=== PATIENT | female | born 1980 | race Caucasian/White ===

== ENCOUNTER → 2016-04-12 | Outpatient (CLI) | payer MEDICAID ==
[~2016-04-12] MED LIST: MACR100C3 PO; PRENTAB9 PO
[2016-04-12 17:48] LABS: MEAN CORPUSCULAR HEMOGLOBIN 28.2 pg (27.0-33.0); MEAN CORPUSCULAR HGB CONC 33.5 g/dl (32.0-36.5); RED CELL DISTRIBUTION WIDTH 13.2 % (11.5-14.5); WHITE BLOOD COUNT 10.6 K/mm3 (4.0-10.0)
[2016-04-15 12:51] LABS: CONTROL LINE INT CTR LINE PRESENT; HIV SCRN NEGATIVE (NEGATIVE); HIV SCRN1 NEGATIVE (NEGATIVE)
== END | disposition home or self-care (01) ==
LOC: M SMT 14:37
PROVIDERS: ATTEND Advanced Practice Midwife
DX: Z34.83 Encounter for supervision of other normal pregnancy, third trimester (principal); Z36 Encounter for antenatal screening of mother; Z3A.00 Weeks of gestation of pregnancy not specified

== ENCOUNTER 2016-04-13 21:24 | Outpatient (CLI) | payer MEDICAID | END 2016-04-13 22:25 | disposition home or self-care (01) | LOC: M LDO 21:24 | PROVIDERS: ATTEND Obstetrics & Gynecology | DX: O26.893 Other specified pregnancy related conditions, third trimester (principal); O32.1XX1 Maternal care for breech presentation, fetus 1; Z3A.39 39 weeks gestation of pregnancy ==

== ENCOUNTER 2016-04-17 12:16 | Outpatient (CLI) | payer MEDICAID ==
[~2016-04-17] VITALS: Ht 180.3 cm; Wt 102.0 kg
[2016-04-17 12:32] VITALS: BP 110/70
[2016-04-17] MEDS ORDERED: MOTR200T44 PO (12:53)
== END 2016-04-17 15:10 | disposition home or self-care (01) ==
LOC: M LDO 12:16
PROVIDERS: ATTEND Specialist
DX: O32.1XX1 Maternal care for breech presentation, fetus 1 (principal); Z3A.39 39 weeks gestation of pregnancy

== ENCOUNTER 2016-04-18 22:39 | Inpatient (IN) | payer MEDICAID ==
[~2016-04-18] VITALS: Ht 180.3 cm; Wt 85.0 kg
[~2016-04-18 22:39] MED LIST changes: +MOTR200T44 PO
[2016-04-18] MEDS ORDERED: LACTATED RINGER'S 1000 ML IV STA (23:37)
[2016-04-18] MEDS ORDERED: LR 1,000 ML IV SCH (23:37)
[2016-04-18] MEDS ORDERED: OXYTOCIN DRIP 30 UNITS in APPROPRIATE DILUENT 1 EA IV SCH (23:45)
[2016-04-18 23:48] LABS: MEAN CORPUSCULAR HEMOGLOBIN 27.4 pg (27.0-33.0); MEAN CORPUSCULAR HGB CONC 33.8 g/dl (32.0-36.5); MEAN CORPUSCULAR VOLUME 80.9 fl (80.0-96.0); RED CELL DISTRIBUTION WIDTH 13.8 % (11.5-14.5)
[2016-04-19] VITALS (9 sets, daily range): BP systolic 102–163; BP diastolic 54–80
[2016-04-19] MEDS ORDERED: FENTANYL 2MCG/ML ROPIVACAINE 0.2% NACL 250 ML CADD As Ordered ONE (01:49)
[2016-04-19] MEDS ORDERED: ONDANSETRON 4MG/2ML VIAL (J2405) IV PRN (02:45)
[2016-04-19] MEDS ORDERED: ePHEDrine SULFATE 25 MG/5 ML(5MG/ML) SYRINGE IV PRN (02:45)
[2016-04-19] MEDS ORDERED: REFRIGERATOR IV KEYS XX PRN (02:45)
[2016-04-19] MEDS ORDERED: diphenhydrAMINE INJ 50MG/ML VIAL (J1200) IV PRN (02:45)
[2016-04-19] MEDS ORDERED: EPIDURAL COMMENT XX SCH (02:45)
[2016-04-19] MEDS ORDERED: EPIDURAL/PCA KEYS XX PRN (02:45)
[2016-04-19] MEDS ORDERED: LACTATED RINGER'S 1000 ML IV PRN (02:45)
[2016-04-19] MEDS ORDERED: NALOXONE INJ 0.4 MG/1 ML VIAL (J2310) IV PRN (02:45)
[2016-04-19] MEDS ORDERED: FENTANYL/ROPIVACAINE/NACL CADD 250 ML EPIDURAL SCH (02:45)
[2016-04-19] MEDS ORDERED: OXYTOCIN DRIP 30 UNITS in APPROPRIATE DILUENT 1 EA IV SCH (08:17)
[2016-04-19] MEDS ORDERED: MEASLES,MUMPS,RUBELLA VACCINE INJ (MMR-II) (90707) SC SCH (08:30)
[2016-04-19] MEDS ORDERED: RHOGAM 300 MCG (1500 IU) INJ (J2790) IM SCH (08:30)
[2016-04-19] MEDS ORDERED: DIBUCAINE 1% OINTMENT 30GM TOP PRN (08:30)
[2016-04-19] MEDS ORDERED: DOCUSATE SODIUM 100 MG CAP PO PRN (08:30)
[2016-04-19] MEDS ORDERED: METHYLERGONOVINE MALEATE 0.2 MG TAB PO PRN (08:30)
[2016-04-19] MEDS: PRENATAL VITAMIN TAB PO SCH (09:00)
[2016-04-19] MEDS: IBUPROFEN 800 MG TAB PO PRN (18:05)
[2016-04-19] MEDS: ACETAMINOPHEN 500 MG TAB PO PRN (19:47)
[2016-04-20 05:56] VITALS: BP 97/68
[2016-04-20] MEDS: IBUPROFEN 800 MG TAB PO PRN (07:58)
[2016-04-20] MEDS: PRENATAL VITAMIN TAB PO SCH (07:58)
[2016-04-20 17:58] VITALS: BP 134/72
[2016-04-21] MEDS: ACETAMINOPHEN 500 MG TAB PO PRN (04:12)
[2016-04-21 05:26] VITALS: BP 132/62
[2016-04-21] MEDS: PRENATAL VITAMIN TAB PO SCH (07:33)
[2016-04-21] MEDS ORDERED: ACET50TA PO (08:33)
[2016-04-21] MEDS: IBUPROFEN 800 MG TAB PO PRN (10:25)
[2016-04-21] MEDS ORDERED: COLA100C PO (14:21)
[2016-04-21] MEDS ORDERED: IBUP200C PO (14:21)
== END 2016-04-21 15:15 | disposition home or self-care (01) | DRG 560 ==
LOC: M LDO 22:39 → M LDI 23:19 → M OBS 04-19 12:02
PROVIDERS: ADMIT Obstetrics & Gynecology; ATTEND Obstetrics & Gynecology
PROC: 10E0XZZ Delivery of Products of Conception, External Approach (ICD-10-PCS; principal; 2016-04-19)
PROC: 0HQ9XZZ Repair Perineum Skin, External Approach (ICD-10-PCS; 2016-04-19)
DX: O34.211 Maternal care for low transverse scar from previous cesarean delivery (principal); Z3A.39 39 weeks gestation of pregnancy; O99.824 Streptococcus B carrier state complicating childbirth; O70.0 First degree perineal laceration during delivery; Z37.0 Single live birth; D26.7 Other benign neoplasm of other parts of uterus; O26.893 Other specified pregnancy related conditions, third trimester

== ENCOUNTER 2016-05-10 02:11 | Emergency (ER) | payer MEDICAID ==
[~2016-05-10 02:11] MED LIST changes: +ACET50TA PO; +COLA100C PO; +IBUP200C PO
--- NOTE | 2016-05-10 04:08 | EDDOCDS ---
Nurse's Notes [facility] Name: Kenny Campos Age: 36 yrs Sex: Female : 1980 Arrival Date: 05/10/2016 Time: 02:11 Bed TR1 Private MD: Diagnosis: Abdominal tenderness Presentation: 05/10 02:28 Presenting complaint: Patient states: Back and abdominal pain that began suddenly lf1 tonight with nausea. Pt reports pain has lessened after vomiting. Pain is currently 2/10 and at worse goes to 9/10. Presenting complaint: Patient states: 3 weeks post . Risk factors: the patient reports moderate vaginal bleeding. Adult Sepsis Screening: The patient does not have new or worsening altered mentation. Patient's respiratory rate is less than 22. Systolic blood pressure is greater than 100. Patient has a qSOFA score of 0- Negative Sepsis Screen. Suicide/Homicide risk assessment- the patient denies having any suicidal and/or homicidal ideations and does not present with any other emotional, behavioral or mental health complaints. 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 Transition of care: patient was not received from another setting of care. 02:28 Acuity: MARINE Level 3 lf1 02:28 Method Of Arrival: Walkin/Carried/Asstd lf1 Triage Assessment: 02:31 General: Appears comfortable, Behavior is cooperative. Pain: Location: left mid back lf1 and right mid back Pain currently is 2 out of 10 on a pain scale. Pt Declines HIV testing. Neurological: Level of Consciousness is awake, alert, Oriented to person, place, time. EENT: No deficits noted. Cardiovascular: Chest pain is denied. Respiratory: Respiratory effort is even, unlabored, Respiratory pattern is regular, Denies cough. GI: Reports lower abdominal pain, nausea, vomiting. : Reports vaginal bleeding that is moderate flow. Derm: Skin is normal. Injury Description: No known injury. 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 none - PMHx: none; - PSHx: ; - Social history: Smoking status: Patient states was never smoker of tobacco. No barriers to communication noted, The patient speaks fluent Cameroonian, Speaks appropriately for age, Preferred Language: Cameroonian. - : The pt / caregiver states he / she is not on anticoagulants. Home medication list is obtained from the patient. - Exposure Risk Screening:: None identified. Screenin:34 Screening information is obtained from the patient. Fall risk: No risks identified. 1 Assistance ADL's: requires no assistance with activities of daily living. Abuse/DV Screen: The patient / caregiver reports he/she is: not in a situation that causes fear, pain or injury. Nutritional screening: No deficits noted. Advance Directives: Currently, there is no health care proxy. home support is adequate. Assessment: 04:06 General: . [facility] Vital Signs: 02:30 BP 131 / 75; Pulse 99; Resp 18; Temp 98.5(O); Pulse Ox 97% on R/A; Weight 90.72 kg (R); ld5 Height 5 ft. 11 in. (180.34 cm) (R); Pain 2/10; 02:30 Body Mass Index 27.89 (90.72 kg, 180.34 cm) ld5 Vitals: 02:31 Log In Time: May 10, 2016 at 02:11. [facility] ED Course: 02:13 Patient visited by King Cueva Reg. pm4 02:13 Patient moved to Waiting pm4 02:26 Patient moved to Triage 1 lf1 02:27 Patient visited by Gisella Kelley RN. lf1 02:31 Triage Initiated lf1 02:43 Patient moved to I8 / 16 1 02:44 Karol Alejandra,GIOVANY is Primary Nurse. cf2 02:44 Patient visited by Karol Alejandra RN. cf2 03:00 Patient visited by Karol Alejandra RN. cf2 03:04 Kwesi Hunter DO is Attending Physician. cs11 03:04 Patient visited by Kwesi Hunter DO. cs11 03:22 Patient moved to [place] [id number] 03:54 [facility] Payment Agreement was scanned into [employer] and attached to record. pm4 Order Results: There are currently no results for this order. Outcome: 04:06 Discharge Assessment: patient administered narcotics - no. The following High Risk [facility] Discharge criteria are identified: Yes, pt left AMA. The patient is leaving AMA: AMA form signed, Notification of AMA status is made to the charge nurse, the licensed clinical social worker, the ED attending physician. Condition: unknown. No special radiology studies were completed. Property :Personal belongings accompany Pt. 04:06 Patient left the ED. [facility] Signatures: Gisella Kelley,RN RN lf1 Aspen RubyRN RN ld5 Valorie Altman RN RN sls1 Kwesi Hunter, DO cs11 Karol AlejandraRN RN cf2 King Cueva, Reg Reg pm4 MTDD
--- NOTE | 2016-05-10 04:08 | EDDOCDS ---
Physician Documentation [facility] Name: Kenny Campos Age: 36 yrs Sex: Female : 1980 Arrival Date: 05/10/2016 Time: 02:11 Bed TR1 Private MD: Disposition: 05/10/16 03:04 Patient left the facility Before Provider Exam, No Interventions. Preliminary diagnosis is Abdominal tenderness. - Patient left due to Unknown reason. Historical: - Allergies: No known drug Allergies; - Home Meds: 1. none - PMHx: none; - PSHx: ; - Social history: Smoking status: Patient states was never smoker of tobacco. No barriers to communication noted, The patient speaks fluent Tamazight, Speaks appropriately for age, Preferred Language: Tamazight. - : The pt / caregiver states he / she is not on anticoagulants. Home medication list is obtained from the patient. - Exposure Risk Screening:: None identified. 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 11 in. (180.34 cm) (R); Pain 2/10; 02:30 Body Mass Index 27.89 (90.72 kg, 180.34 cm) ld5 MDM: 02:37 UA Ordered. EDMS 03:17 Financial registration complete. hs2 03:54 [facility] Payment Agreement was scanned into [employer] and attached to record. pm4 Signatures: Dispatcher MedHost EDMS Gisella KelleyRN RN lf1 Valorie Altman RN RN sls1 Kwesi Hunter DO DO cs11 Connie Wells, Reg Reg hs2 King Cueva, Reg Reg pm4 The chart was reviewed and I authenticate all verbal orders and agree with the evaluation and treatment provided.Attachments: 03:54 [facility] [place] Agreement pm4 MTDD
--- NOTE | 2016-05-12 05:07 | EDDOCDS ---
Physician Documentation [facility] Name: Kenny Campos Age: 36 yrs Sex: Female : 1980 Arrival Date: 05/10/2016 Time: 02:11 Bed TR1 Private MD: Disposition: 05/10/16 03:04 Patient left the facility Before Provider Exam, No Interventions. Preliminary diagnosis is Abdominal tenderness. - Patient left due to Unknown reason. Historical: - Allergies: No known drug Allergies; - Home Meds: 1. none - PMHx: none; - PSHx: ; - Social history: Smoking status: Patient states was never smoker of tobacco. No barriers to communication noted, The patient speaks fluent Serbian, Speaks appropriately for age, Preferred Language: Serbian. - : The pt / caregiver states he / she is not on anticoagulants. Home medication list is obtained from the patient. - Exposure Risk Screening:: None identified. 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 11 in. (180.34 cm) (R); Pain 2/10; 02:30 Body Mass Index 27.89 (90.72 kg, 180.34 cm) ld5 MDM: 02:37 UA Ordered. EDMS 03:17 Financial registration complete. hs2 03:54 [facility] Payment Agreement was scanned into [employer] and attached to record. pm4 14:20 Refusal of Services was scanned into [employer] and attached to record. gb Signatures: Dispatcher MedHost EDMD Dina Tello, Reg Reg gb Gisella Kelley RN RN lf1 Valorie Altman RN RN sls1 Kwesi Hunter DO DO cs11 Connie Wells, Reg Reg hs2 King Cueva, Reg Reg pm4 The chart was reviewed and I authenticate all verbal orders and agree with the evaluation and treatment provided.Attachments: 03:54 [facility] Payment Agreement pm4 Chart Complete MTDD
--- NOTE | 2016-05-12 05:07 | EDDOCDS ---
Physician Documentation [facility] Name: Kenny Campos Age: 36 yrs Sex: Female : 1980 Arrival Date: 05/10/2016 Time: 02:11 Bed TR1 Private MD: Disposition: 05/10/16 03:04 Patient left the facility Before Provider Exam, No Interventions. Preliminary diagnosis is Abdominal tenderness. - Patient left due to Unknown reason. Historical: - Allergies: No known drug Allergies; - Home Meds: 1. none - PMHx: none; - PSHx: ; - Social history: Smoking status: Patient states was never smoker of tobacco. No barriers to communication noted, The patient speaks fluent Persian, Speaks appropriately for age, Preferred Language: Persian. - : The pt / caregiver states he / she is not on anticoagulants. Home medication list is obtained from the patient. - Exposure Risk Screening:: None identified. 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 11 in. (180.34 cm) (R); Pain 2/10; 02:30 Body Mass Index 27.89 (90.72 kg, 180.34 cm) ld5 MDM: 02:37 UA Ordered. EDMS 03:17 Financial registration complete. hs2 03:54 [facility] Payment Agreement was scanned into [employer] and attached to record. pm4 14:20 Refusal of Services was scanned into [employer] and attached to record. gb Signatures: Dispatcher [employer]Host EDMN Dina Tello, Reg Reg gb Gisella Kelley RN RN lf1 Valorie Altman RN RN sls1 Kwesi Hunter DO DO cs11 Connie Wells, Reg Reg hs2 King Cueva, Reg Reg pm4 The chart was reviewed and I authenticate all verbal orders and agree with the evaluation and treatment provided.Attachments: 03:54 [facility] Payment Agreement pm4 Chart Complete MTDD
--- NOTE | 2016-05-12 05:07 | EDDOCDS ---
Nurse's Notes [facility] Name: Kenny Campos Age: 36 yrs Sex: Female : 1980 Arrival Date: 05/10/2016 Time: 02:11 Bed TR1 Private MD: Diagnosis: Abdominal tenderness Presentation: 05/10 02:28 Presenting complaint: Patient states: Back and abdominal pain that began suddenly lf1 tonight with nausea. Pt reports pain has lessened after vomiting. Pain is currently 2/10 and at worse goes to 9/10. Presenting complaint: Patient states: 3 weeks post . Risk factors: the patient reports moderate vaginal bleeding. Adult Sepsis Screening: The patient does not have new or worsening altered mentation. Patient's respiratory rate is less than 22. Systolic blood pressure is greater than 100. Patient has a qSOFA score of 0- Negative Sepsis Screen. Suicide/Homicide risk assessment- the patient denies having any suicidal and/or homicidal ideations and does not present with any other emotional, behavioral or mental health complaints. 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 Transition of care: patient was not received from another setting of care. 02:28 Acuity: MARINE Level 3 lf1 02:28 Method Of Arrival: Walkin/Carried/Asstd lf1 Triage Assessment: 02:31 General: Appears comfortable, Behavior is cooperative. Pain: Location: left mid back lf1 and right mid back Pain currently is 2 out of 10 on a pain scale. Pt Declines HIV testing. Neurological: Level of Consciousness is awake, alert, Oriented to person, place, time. EENT: No deficits noted. Cardiovascular: Chest pain is denied. Respiratory: Respiratory effort is even, unlabored, Respiratory pattern is regular, Denies cough. GI: Reports lower abdominal pain, nausea, vomiting. : Reports vaginal bleeding that is moderate flow. Derm: Skin is normal. Injury Description: No known injury. 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 none - PMHx: none; - PSHx: ; - Social history: Smoking status: Patient states was never smoker of tobacco. No barriers to communication noted, The patient speaks fluent New Zealander, Speaks appropriately for age, Preferred Language: New Zealander. - : The pt / caregiver states he / she is not on anticoagulants. Home medication list is obtained from the patient. - Exposure Risk Screening:: None identified. Screenin:34 Screening information is obtained from the patient. Fall risk: No risks identified. lf1 Assistance ADL's: requires no assistance with activities of daily living. Abuse/DV Screen: The patient / caregiver reports he/she is: not in a situation that causes fear, pain or injury. Nutritional screening: No deficits noted. Advance Directives: Currently, there is no health care proxy. home support is adequate. Assessment: 04:06 General: . sls1 Social Work Consult: 06:18 LWBS/AMA AMA: Patient is refusing further stabilizing treatment at [facility], although cl offered treatment regardless of method of payment or ability to pay. Patient is aware that this action is being undertaken against the advice of the medical staff at [facility]. Pt. has capacity to understand the potential consequences of this choice. pt did notify ED staff. Patient / guardian did sign Refusal of Services form. Pt left before being seen by PSA. Vital Signs: 02:30 BP 131 / 75; Pulse 99; Resp 18; Temp 98.5(O); Pulse Ox 97% on R/A; Weight 90.72 kg (R); ld5 Height 5 ft. 11 in. (180.34 cm) (R); Pain 2/10; 02:30 Body Mass Index 27.89 (90.72 kg, 180.34 cm) ld5 Vitals: 02:31 Log In Time: May 10, 2016 at 02:11. lf1 ED Course: 02:13 Patient visited by King Cueva Reg. pm4 02:13 Patient moved to Waiting pm4 02:26 Patient moved to Triage 1 lf1 02:27 Patient visited by Gisella Kelley RN. lf1 02:31 Triage Initiated lf1 02:43 Patient moved to I8 / 16 lf1 02:44 Karol Alejandra,GIOVANY is Primary Nurse. cf2 02:44 Patient visited by Karol Alejandra,GIOVANY. cf2 03:00 Patient visited by Karol Alejandra,GIOVANY. cf2 03:04 Kwesi Hunter DO is Attending Physician. cs11 03:04 Patient visited by Kwesi Hunter DO. cs11 03:22 Patient moved to TR1 [facility] 03:54 [facility] [place] Agreement was scanned into [employer] and attached to record. pm4 14:20 Refusal of Services was scanned into [employer] and attached to record. gb Attachments: 14:20 Refusal of Services gb Order Results: There are currently no results for this order. Outcome: 04:06 Discharge Assessment: patient administered narcotics - no. The following High Risk [facility] Discharge criteria are identified: Yes, pt left AMA. The patient is leaving AMA: AMA form signed, Notification of AMA status is made to the charge nurse, the moving worker, the ED attending physician. Condition: unknown. No special radiology studies were completed. Property :Personal belongings accompany Pt. 04:06 Patient left the ED. [facility] Signatures: Cesar Carrizales, ANDREW PSA cl Dina Tello, Reg Reg gb Gisella Kelley,RN RN lf1 Aspen RubyRN RN ld5 Valorie Altman RN RN sls1 Kwesi Hunter, DO cs11 Karol AlejandraRN RN cf2 King Cueva, Reg Reg pm4 Chart Complete GRETEL
--- NOTE | 2016-05-13 10:11 | EDDOCDS ---
Nurse's Notes [facility] Name: Kenny Campos Age: 36 yrs Sex: Female : 1980 Arrival Date: 05/10/2016 Time: 02:11 Bed TR1 Private MD: Diagnosis: Abdominal tenderness Presentation: 05/10 02:28 Presenting complaint: Patient states: Back and abdominal pain that began suddenly lf1 tonight with nausea. Pt reports pain has lessened after vomiting. Pain is currently 2/10 and at worse goes to 9/10. Presenting complaint: Patient states: 3 weeks post . Risk factors: the patient reports moderate vaginal bleeding. Adult Sepsis Screening: The patient does not have new or worsening altered mentation. Patient's respiratory rate is less than 22. Systolic blood pressure is greater than 100. Patient has a qSOFA score of 0- Negative Sepsis Screen. Suicide/Homicide risk assessment- the patient denies having any suicidal and/or homicidal ideations and does not present with any other emotional, behavioral or mental health complaints. 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 Transition of care: patient was not received from another setting of care. 02:28 Acuity: MARINE Level 3 lf1 02:28 Method Of Arrival: Walkin/Carried/Asstd lf1 Triage Assessment: 02:31 General: Appears comfortable, Behavior is cooperative. Pain: Location: left mid back lf1 and right mid back Pain currently is 2 out of 10 on a pain scale. Pt Declines HIV testing. Neurological: Level of Consciousness is awake, alert, Oriented to person, place, time. EENT: No deficits noted. Cardiovascular: Chest pain is denied. Respiratory: Respiratory effort is even, unlabored, Respiratory pattern is regular, Denies cough. GI: Reports lower abdominal pain, nausea, vomiting. : Reports vaginal bleeding that is moderate flow. Derm: Skin is normal. Injury Description: No known injury. 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 none - PMHx: none; - PSHx: ; - Social history: Smoking status: Patient states was never smoker of tobacco. No barriers to communication noted, The patient speaks fluent Gambian, Speaks appropriately for age, Preferred Language: Gambian. - : The pt / caregiver states he / she is not on anticoagulants. Home medication list is obtained from the patient. - Exposure Risk Screening:: None identified. Screenin:34 Screening information is obtained from the patient. Fall risk: No risks identified. lf1 Assistance ADL's: requires no assistance with activities of daily living. Abuse/DV Screen: The patient / caregiver reports he/she is: not in a situation that causes fear, pain or injury. Nutritional screening: No deficits noted. Advance Directives: Currently, there is no health care proxy. home support is adequate. Assessment: 04:06 General: . sls1 Social Work Consult: 06:18 LWBS/AMA AMA: Patient is refusing further stabilizing treatment at [facility], although cl offered treatment regardless of method of payment or ability to pay. Patient is aware that this action is being undertaken against the advice of the medical staff at [facility]. Pt. has capacity to understand the potential consequences of this choice. pt did notify ED staff. Patient / guardian did sign Refusal of Services form. Pt left before being seen by PSA. Vital Signs: 02:30 BP 131 / 75; Pulse 99; Resp 18; Temp 98.5(O); Pulse Ox 97% on R/A; Weight 90.72 kg (R); ld5 Height 5 ft. 11 in. (180.34 cm) (R); Pain 2/10; 02:30 Body Mass Index 27.89 (90.72 kg, 180.34 cm) ld5 Vitals: 02:31 Log In Time: May 10, 2016 at 02:11. lf1 ED Course: 02:13 Patient visited by King Cueva Reg. pm4 02:13 Patient moved to Waiting pm4 02:26 Patient moved to Triage 1 lf1 02:27 Patient visited by Gisella Kelley RN. lf1 02:31 Triage Initiated lf1 02:43 Patient moved to I8 / 16 lf1 02:44 Karol Alejandra,GIOVANY is Primary Nurse. cf2 02:44 Patient visited by Karol Alejandra,GIOVANY. cf2 03:00 Patient visited by Karol Alejandra,GIOVANY. cf2 03:04 Kwesi Hunter DO is Attending Physician. cs11 03:04 Patient visited by Kwesi Hunter DO. cs11 03:22 Patient moved to TR1 [facility] 03:54 [facility] Payment Agreement was scanned into [employer] and attached to record. pm4 14:20 Refusal of Services was scanned into [employer] and attached to record. gb Attachments: 14:20 Refusal of Services gb Order Results: There are currently no results for this order. Outcome: 04:06 Discharge Assessment: patient administered narcotics - no. The following High Risk [facility] Discharge criteria are identified: Yes, pt left AMA. The patient is leaving AMA: AMA form signed, Notification of AMA status is made to the charge nurse, the addiction social worker, the ED attending physician. Condition: unknown. No special radiology studies were completed. Property :Personal belongings accompany Pt. 04:06 Patient left the ED. [facility] Addendum: 05/13/2016 10:10 Narrative: Letter and discharge instructions mailed to pt. tc Signatures: Lindy Hartman Chris, ANDREW PSA cl Dina Tello, Reg Reg gb Gisella Kelley,RN RN lf1 Aspen Ruby,RN RN ld5 Valorie Altman, RN RN sls1 Kwesi Hunter, DO DO cs11 Karol Alejandra,RN RN cf2 King Cueva, Reg Reg pm4 MTDD
--- NOTE | 2016-05-13 10:11 | EDDOCDS ---
Physician Documentation [facility] Name: Kenny Campos Age: 36 yrs Sex: Female : 1980 Arrival Date: 05/10/2016 Time: 02:11 Bed TR1 Private MD: Disposition: 05/10/16 03:04 Patient left the facility Before Provider Exam, No Interventions. Preliminary diagnosis is Abdominal tenderness. - Patient left due to Unknown reason. Historical: - Allergies: No known drug Allergies; - Home Meds: 1. none - PMHx: none; - PSHx: ; - Social history: Smoking status: Patient states was never smoker of tobacco. No barriers to communication noted, The patient speaks fluent Wolof, Speaks appropriately for age, Preferred Language: Wolof. - : The pt / caregiver states he / she is not on anticoagulants. Home medication list is obtained from the patient. - Exposure Risk Screening:: None identified. 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 11 in. (180.34 cm) (R); Pain 2/10; 02:30 Body Mass Index 27.89 (90.72 kg, 180.34 cm) ld5 MDM: 02:37 UA Ordered. EDMS 03:17 Financial registration complete. hs2 03:54 [facility] Payment Agreement was scanned into [employer] and attached to record. pm4 14:20 Refusal of Services was scanned into [employer] and attached to record. gb Signatures: Dispatcher MedHost EDOR Dina Tello, Reg Reg gb Gisella Kelley RN RN lf1 Valorie Altman RN RN sls1 Kwesi Hunter DO DO cs11 Connie Wells, Reg Reg hs2 King Cueva, Reg Reg pm4 The chart was reviewed and I authenticate all verbal orders and agree with the evaluation and treatment provided.Attachments: 03:54 [facility] [place] Payment Agreement pm4 MTDD
--- NOTE | 2016-05-13 10:11 | EDDOCDS ---
Physician Documentation [facility] Name: Kenny Campos Age: 36 yrs Sex: Female : 1980 Arrival Date: 05/10/2016 Time: 02:11 Bed TR1 Private MD: Disposition: 05/10/16 03:04 Patient left the facility Before Provider Exam, No Interventions. Preliminary diagnosis is Abdominal tenderness. - Patient left due to Unknown reason. Historical: - Allergies: No known drug Allergies; - Home Meds: 1. none - PMHx: none; - PSHx: ; - Social history: Smoking status: Patient states was never smoker of tobacco. No barriers to communication noted, The patient speaks fluent Slovak, Speaks appropriately for age, Preferred Language: Slovak. - : The pt / caregiver states he / she is not on anticoagulants. Home medication list is obtained from the patient. - Exposure Risk Screening:: None identified. 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 11 in. (180.34 cm) (R); Pain 2/10; 02:30 Body Mass Index 27.89 (90.72 kg, 180.34 cm) ld5 MDM: 02:37 UA Ordered. EDMS 03:17 Financial registration complete. hs2 03:54 [facility] Payment Agreement was scanned into [employer] and attached to record. pm4 14:20 Refusal of Services was scanned into [employer]ii and attached to record. gb Signatures: Dispatcher Med[employer] EDRI Dina Tello, Reg Reg gb Gisella Kelley RN RN lf1 Valorie Altman RN RN sls1 Kwesi Hunter DO DO cs11 Connie Wells, Reg Reg hs2 King Cueva, Reg Reg pm4 The chart was reviewed and I authenticate all verbal orders and agree with the evaluation and treatment provided.Attachments: 03:54 [facility] Payment Agreement pm4 MTDD
--- NOTE | 2016-05-13 10:12 | EDDOCDS ---
Nurse's Notes [facility] Name: Kenny Campos Age: 36 yrs Sex: Female : 1980 Arrival Date: 05/10/2016 Time: 02:11 Bed TR1 Private MD: Diagnosis: Abdominal tenderness Presentation: 05/10 02:28 Presenting complaint: Patient states: Back and abdominal pain that began suddenly lf1 tonight with nausea. Pt reports pain has lessened after vomiting. Pain is currently 2/10 and at worse goes to 9/10. Presenting complaint: Patient states: 3 weeks post . Risk factors: the patient reports moderate vaginal bleeding. Adult Sepsis Screening: The patient does not have new or worsening altered mentation. Patient's respiratory rate is less than 22. Systolic blood pressure is greater than 100. Patient has a qSOFA score of 0- Negative Sepsis Screen. Suicide/Homicide risk assessment- the patient denies having any suicidal and/or homicidal ideations and does not present with any other emotional, behavioral or mental health complaints. Status: Patient is not a employment services director or dependent. Transition of care: patient was not received from another setting of care. 02:28 Acuity: MARINE Level 3 lf1 02:28 Method Of Arrival: Walkin/Carried/Asstd lf1 Triage Assessment: 02:31 General: Appears comfortable, Behavior is cooperative. Pain: Location: left mid back lf1 and right mid back Pain currently is 2 out of 10 on a pain scale. Pt Declines HIV testing. Neurological: Level of Consciousness is awake, alert, Oriented to person, place, time. EENT: No deficits noted. Cardiovascular: Chest pain is denied. Respiratory: Respiratory effort is even, unlabored, Respiratory pattern is regular, Denies cough. GI: Reports lower abdominal pain, nausea, vomiting. : Reports vaginal bleeding that is moderate flow. Derm: Skin is normal. Injury Description: No known injury. TECHNICAL AID: 02:31 3, Living 3, LMP 05/10/2016 lf1 Historical: - Allergies: No known drug Allergies; - Home Meds: 1. none - PMHx: none; - PSHx: ; - Social history: Smoking status: Patient states was never smoker of tobacco. No barriers to communication noted, The patient speaks fluent [place], Speaks appropriately for age, Preferred Language: [place]. - : The pt / caregiver states he / she is not on anticoagulants. Home medication list is obtained from the patient. - Exposure Risk Screening:: None identified. Screenin:34 Screening information is obtained from the patient. Fall risk: No risks identified. lf1 Assistance ADL's: requires no assistance with activities of daily living. Abuse/DV Screen: The patient / caregiver reports he/she is: not in a situation that causes fear, pain or injury. Nutritional screening: No deficits noted. Advance Directives: Currently, there is no health care proxy. home support is adequate. Assessment: 04:06 General: . sls1 Social Work Consult: 06:18 LWBS/AMA AMA: Patient is refusing further stabilizing treatment at [facility], although cl offered treatment regardless of method of payment or ability to pay. Patient is aware that this action is being undertaken against the advice of the medical staff at [facility]. Pt. has capacity to understand the potential consequences of this choice. pt did notify ED staff. Patient / guardian did sign Refusal of Services form. Pt left before being seen by PSA. Vital Signs: 02:30 BP 131 / 75; Pulse 99; Resp 18; Temp 98.5(O); Pulse Ox 97% on R/A; Weight 90.72 kg (R); ld5 Height 5 ft. 11 in. (180.34 cm) (R); Pain 2/10; 02:30 Body Mass Index 27.89 (90.72 kg, 180.34 cm) ld5 Vitals: 02:31 Log In Time: May 10, 2016 at 02:11. lf1 ED Course: 02:13 Patient visited by King Cueva Reg. pm4 02:13 Patient moved to Waiting pm4 02:26 Patient moved to Triage 1 lf1 02:27 Patient visited by Gisella Kelley RN. lf1 02:31 Triage Initiated lf1 02:43 Patient moved to I8 / 16 lf1 02:44 Karol Alejandra,GIOVANY is Primary Nurse. cf2 02:44 Patient visited by Karol Alejandra,GIOVANY. cf2 03:00 Patient visited by Karol Alejandra,GIOVANY. cf2 03:04 Kwesi Hunter DO is Attending Physician. cs11 03:04 Patient visited by Kwesi Hunter DO. cs11 03:22 [facility] [place] Agreement was scanned into [employer] and attached to record. pm4 14:20 Refusal of Services was scanned into [employer] and attached to record. gb Attachments: 14:20 Refusal of Services gb Order Results: There are currently no results for this order. Outcome: 04:06 Discharge Assessment: patient administered narcotics - no. The following High Risk [facility] Discharge criteria are identified: Yes, pt left AMA. The patient is leaving AMA: AMA form signed, Notification of AMA status is made to the charge nurse, the social welfare administrator, the ED attending physician. Condition: unknown. No special radiology studies were completed. Property :Personal belongings accompany Pt. 04:06 Patient left the ED. [facility] Addendum: 05/13/2016 10:10 Narrative: Letter and discharge instructions mailed to pt. tc Signatures: Lindy aHrtman Chris, ANDREW PSA cl Dina Tello, Reg Reg gb Gisella Kelley,RN RN lf1 Aspen Ruby,RN RN ld5 Valorie Altman, RN RN sls1 Kwesi Hunter, DO DO cs11 Karol Alejandra,RN RN cf2 King Cueva, Reg Reg pm4 Chart Complete MTDD
--- NOTE | 2016-05-13 10:12 | EDDOCDS ---
Physician Documentation [facility] Name: Kenny Campos Age: 36 yrs Sex: Female : 1980 Arrival Date: 05/10/2016 Time: 02:11 Bed TR1 Private MD: Disposition: 05/10/16 03:04 Patient left the facility Before Provider Exam, No Interventions. Preliminary diagnosis is Abdominal tenderness. - Patient left due to Unknown reason. Historical: - Allergies: No known drug Allergies; - Home Meds: 1. none - PMHx: none; - PSHx: ; - Social history: Smoking status: Patient states was never smoker of tobacco. No barriers to communication noted, The patient speaks fluent Slovak, Speaks appropriately for age, Preferred Language: Slovak. - : The pt / caregiver states he / she is not on anticoagulants. Home medication list is obtained from the patient. - Exposure Risk Screening:: None identified. 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 11 in. (180.34 cm) (R); Pain 2/10; 02:30 Body Mass Index 27.89 (90.72 kg, 180.34 cm) ld5 MDM: 02:37 UA Ordered. EDMS 03:17 Financial registration complete. hs2 03:54 [facility] Payment Agreement was scanned into [employer] and attached to record. pm4 14:20 Refusal of Services was scanned into [employer] and attached to record. gb Signatures: Dispatcher Med[employer] EDIN Dina Tello, Reg Reg gb Gisella Kelley RN RN lf1 Valorie Altman RN RN sls1 Kwesi Hunter DO DO cs11 Connie Wells, Reg Reg hs2 King Cueva, Reg Reg pm4 The chart was reviewed and I authenticate all verbal orders and agree with the evaluation and treatment provided.Attachments: 03:54 [facility] Payment Agreement pm4 Chart Complete MTDD
--- NOTE | 2016-05-13 10:12 | EDDOCDS ---
Physician Documentation [facility] Name: Kenny Campos Age: 36 yrs Sex: Female : 1980 Arrival Date: 05/10/2016 Time: 02:11 Bed TR1 Private MD: Disposition: 05/10/16 03:04 Patient left the facility Before Provider Exam, No Interventions. Preliminary diagnosis is Abdominal tenderness. - Patient left due to Unknown reason. Historical: - Allergies: No known drug Allergies; - Home Meds: 1. none - PMHx: none; - PSHx: ; - Social history: Smoking status: Patient states was never smoker of tobacco. No barriers to communication noted, The patient speaks fluent German, Speaks appropriately for age, Preferred Language: German. - : The pt / caregiver states he / she is not on anticoagulants. Home medication list is obtained from the patient. - Exposure Risk Screening:: None identified. 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 11 in. (180.34 cm) (R); Pain 2/10; 02:30 Body Mass Index 27.89 (90.72 kg, 180.34 cm) ld5 MDM: 02:37 UA Ordered. EDMS 03:17 Financial registration complete. hs2 03:54 [facility] Payment Agreement was scanned into #waywire and attached to record. pm4 14:20 Refusal of Services was scanned into #waywire and attached to record. gb Signatures: Dispatcher [employer] EDCA Dina Tello, Reg Reg gb Gisella Kelley RN RN lf1 Valorie Altman RN RN sls1 Kwesi Hunter DO DO cs11 Connie Wells, Reg Reg hs2 King Cueva, Reg Reg pm4 The chart was reviewed and I authenticate all verbal orders and agree with the evaluation and treatment provided.Attachments: 03:54 [place] Payment Agreement pm4 Chart Complete MTDD
== END 2016-05-10 03:00 | disposition left against medical advice (07) ==
LOC: M ED 02:11
DX: Z53.29 Procedure and treatment not carried out because of patient's decision for other reasons (principal)

== ENCOUNTER 2016-05-27 23:33 | Inpatient (IN) | payer MEDICAID ==
[~2016-05-27] VITALS: Ht 180.3 cm; Wt 96.9 kg
[2016-05-28] MEDS ORDERED: METOCLOPRAMIDE INJ 10MG/2ML VIAL (J2765) IV ONE (00:15)
[2016-05-28] MEDS ORDERED: NS 1,000 ML IV ONE (00:15)
[2016-05-28 00:28] LABS: BASO % 0.1 % (0.0-1.0); EOS # 0.2 K/mm3 (0.0-0.50); LARGE UNSTAINED CELL # 0.1 K/mm3 (0.0-0.4); LARGE UNSTAINED CELL % 0.4 % (0.0-4.0); LYMPH # 0.9 K/mm3 (1.5-4.5); LYMPH % 5.2 % (24.0-44.0); MEAN CORPUSCULAR HEMOGLOBIN 26.6 pg (27.0-33.0); MEAN CORPUSCULAR HGB CONC 31.8 g/dl (32.0-36.5); MEAN CORPUSCULAR VOLUME 83.8 fl (80.0-96.0); MONO # 0.8 K/mm3 (0.0-0.8); MONO % 4.8 % (0.0-5.0); NEUTROPHILS % 88.5 % (36.0-66.0); PLATELET COUNT, AUTOMATED 273 k/mm3 (150-450); RED CELL DISTRIBUTION WIDTH 13.1 % (11.5-14.5); WHITE BLOOD COUNT 15.8 K/mm3 (4.0-10.0)
[2016-05-28 00:41] LABS: CONTROL LINE HCG INT CTR LINE PRESENT
[2016-05-28 00:50] LABS: ALBUMIN 4.1 GM/DL (3.2-5.2); ALBUMIN/GLOBULIN RATIO 0.91 (1.00-1.93); ALKALINE PHOSPHATASE 340 U/L (45-117); ALT/SGPT 548 U/L (12-78); AMYLASE 719 U/L (25-115); ANION GAP 10 MEQ/L (8-16); AST/SGOT 726 U/L (15-37); BILIRUBIN,DIRECT 0.4 MG/DL (0.0-0.2); BILIRUBIN,TOTAL 0.9 MG/DL (0.2-1.0); BLOOD UREA NITROGEN 12 MG/DL (7-18); CALCIUM LEVEL 9.3 MG/DL (8.5-10.1); CARBON DIOXIDE LEVEL 26 MEQ/L (21-32); CHLORIDE LEVEL 108 MEQ/L (98-107); CREATININE FOR GFR 0.97 MG/DL (0.55-1.02); GLOMERULAR FILTRATION RATE > 60.0 (>60); GLUCOSE, FASTING 128 MG/DL (70-105); POTASSIUM SERUM 3.7 MEQ/L (3.5-5.1); SODIUM LEVEL 144 MEQ/L (136-145); TOTAL PROTEIN 8.6 GM/DL (6.4-8.2)
[2016-05-28] MEDS ORDERED: MORPHINE 4 MG/ML 1ML SYRINGE IV ONE (01:45)
[2016-05-28] MEDS ORDERED: GASTROGRAFIN SOLUTION 30ML (Q9963) As Ordered ONE (01:55)
[2016-05-28] MEDS ORDERED: ISOVUE-370 76% 100ML VIAL (Q9967) As Ordered ONE (03:29)
[2016-05-28] MEDS ORDERED: HYDROmorphone HCL 1 MG/ML SYRINGE (J1170) IV ONE (05:15)
[2016-05-28] MEDS ORDERED: ONDANSETRON 4 MG TAB (S0181) PO PRN (05:30)
[2016-05-28] MEDS ORDERED: MORPHINE 2 MG/ML 1ML SYRINGE IV PRN (05:30)
--- NOTE | 2016-05-28 06:40 | REPUSA ---
CLINICAL HISTORY: Abdominal pain. TECHNIQUE: Realtime sonographic images were obtained in multiple projections. COMMENTS: The liver is of normal size, parenchyma demonstrates normal echogenicity. No discrete hepatic mass is seen. There is no intra or extrahepatic biliary ductal dilatation. CBD measures 4 mm. The gallbladder is ph ysiologically distended with evidence of calculi and gravel. The gallbladder wall is not thickened an d there is no pericholecystic fluid. There is no abdominal ascites. The right kidney measures 12x6.2x4.7 cm, free of hydronephrosis. IMPRESSION: Cholelithiasis. No evidence for acute cholecystitis. Thank you for your kind referral of this patient.
[2016-05-28] MEDS: NS 1,000 ML IV SCH ×4 (07:30→20:42)
[2016-05-28 07:41] VITALS: BP 92/59
--- NOTE | 2016-05-28 08:07 | HPEPDOC ---
General Date of Admission May 28, 2016 at 07:07 Attending Physician: SHYAM GUPTA DO Chief Complaint The patient is a 36-year-old female admitted with a reason for visit of Pancreatitis. Source: Patient, RN notes reviewed Exam Limitations: No limitations Timing/Duration: Week(s), Getting worse Severity: Moderate Associated Symptoms: Nausea, Vomiting, Weakness History of Present Illness Ms. Campos is a 36 year old female with no past medical history who presents to [facility]'s emergency department with nausea and vomiting. Patient states that she has been having abdominal and back pain throughout her most recent and gave vaginally about a month ago. The back and abdominal pain continued after giving which she attributed to epidural pain. She describes the pain as sharp and shooting in her back and the abdominal pain is diffuse across her abdomen. Most recently, last night she began vomiting which lasted for 2 hours. She stated that anything she would try to orally consume she would bring up. She eventually just dry-heaved. She does state that she vomited up blood as well. She states that she feels weak and has numbness in her lower extremities, which is new. She is unable to lay flat due to the back pain. She admits to shortness of breath secondary to the pain. Denies radiating pain. This has never happened before. She has tried hot water on her back which provided some relief. Home Medications No Active Prescriptions or Reported Meds Allergies Coded Allergies: No Known Allergies (Unverified , 02/07/16) Past Medical History Medical History None Surgical History , 2006 Family History Significant Family History: No pertinent family hx Adopted Social History * Smoker: Denies Alcohol: Denies Drugs: denies Recent Travel/Sick Contacts: Denies: Recent sick contacts, Recent travel Currently is not employed Stays at home to take care of her No environmental exposures Remote travel history to [facility] where she lived for 7 years Admits to drinking a lot of soda Prior history of alcohol abuse, 2-3 drinks/night; quit 2 years ago Denies illicit drug use Review of Symptoms Constitutional: Reports: Weakness, Denies: Chills, Fever, Malaise, Night Sweats Eyes: Denies: Vision change ENT: Denies: Head Aches, Sore Throat Skin: Denies: Lesions, Rash Pulmonary: Reports: Dyspnea, Denies: Cough Cardiovascular: Denies: Chest Pain, Lt Headedness, Palpitations Gastrointestinal: Reports: Abdominal Pain, Nausea, Vomiting, Denies: Hematochezia, Melena Genitourinary: Denies: Hematuria Musculoskeletal: Reports: Back Pain Neurological: Reports: Numbness (Lower extremities), Weakness Physical Examination General Exam: Positive: Alert, Cooperative Eye Exam: Positive: Conjunctiva & lids normal, EOMI, PERRLA, Negative: Sclera icteric ENT Exam: Positive: Atraumatic, Nares Patent, Tongue Midline Neck Exam: Positive: Supple, Negative: JVD, Lymphadenopathy, thyromegaly Chest Exam: Positive: Clear to auscultation, Normal air movement, Negative: Rales, Rhonchi, Wheezing Heart Exam: Positive: Rate Normal, Regular Rhythm, Tachycardic Telemetry: Positive: No significant arrhythmia Abdomen Exam: Positive: Normal bowel sounds, Soft, Tenderness (To palpation) Extremity Exam: Positive: Normal pulses, Negative: Clubbing, Cyanosis, Edema, Tenderness Neuro Exam: Positive: Cranial Nerves 3-12 NL, Normal Speech Vital Signs T 99.5 HR 88 RR 18 BP 122/73 O2 97% RA Height (in): 71 Weight (kg): 90.72 BMI (kg): 27.9 Laboratory Data Labs 24H Laboratory Tests 2 05/28/16 00:11: Aspartate Amino Transf (AST/SGOT) 726H, Alanine Aminotransferase (ALT/SGPT) 548H , Alkaline Phosphatase 340H, Total Bilirubin 0.9, Direct Bilirubin 0.4H, Albumin 4.1, Albumin/Globulin Ratio 0.91L, Amylase Level 719H, Anion Gap 10, White Blood Count 15.8H, Red Blood Count 5.19, Hemoglobin 13.8, Hematocrit 43.5 , Mean Corpuscular Volume 83.8, Mean Corpuscular Hemoglobin 26.6L, Mean Corpuscular Hemoglobin Concent 31.8L, Red Cell Distribution Width 13.1, Platelet Count 273, Neutrophils (%) (Auto) 88.5H, Lymphocytes (%) (Auto) 5.2L, Monocytes (%) (Auto) 4.8, Eosinophils (%) (Auto) 1.0, Basophils (%) (Auto) 0.1, Neutrophils # (Auto) 14.0H, Lymphocytes # (Auto) 0.9L, Monocytes # (Auto) 0.8, Eosinophils # (Auto) 0.2, Basophils # (Auto) 0.0, Calcium Level 9.3, Glomerular Filtration Rate > 60.0, Human Chorionic Gonadotropin, Qual NEGATIVE, Large Unclassified Cells # 0.1, Large Unclassified Cells % 0.4, Lipase 01861L, Total Protein 8.6H CBC/BMP Laboratory Tests 05/28/16 00:11 Red Blood Count 5.19, Mean Corpuscular Volume 83.8, Mean Corpuscular Hemoglobin 26.6 L, Mean Corpuscular Hemoglobin Concent 31.8 L, Red Cell Distribution Width 13.1, Neutrophils (%) (Auto) 88.5 H, Lymphocytes (%) (Auto) 5.2 L, Monocytes (% ) (Auto) 4.8, Eosinophils (%) (Auto) 1.0, Basophils (%) (Auto) 0.1, Neutrophils # (Auto) 14.0 H, Lymphocytes # (Auto) 0.9 L, Monocytes # (Auto) 0.8, Eosinophils # (Auto) 0.2, Basophils # (Auto) 0.0 Assessment/Plan 36 year old female who presents with nausea and vomiting found to have acute pancreatitis on imaging. Problems (1) Pancreatitis Status: Acute Problem Specific Plan: Consult Specialist Problem Text: NPO Bedrest VS every 4 hours Daily labs Lipase IVF: 250mL/HR Liver U/S - Cholelithiasis - No acute cholecystitis - CBD 4mm Imaging on admission: CT abdomen and pelvis - Acute pancreatitis Order imaging: MRI abdomen and pelvis Pain control - Percocet 1 tab every 4 hours, as needed - Morphine 2mg every 2 hours, as needed N/V control - Zofran 4mg every 6 hours, as needed Consult GI Plan / VTE VTE Prophylaxis Ordered?: Yes (Lovenox 40mg SC daily) Plan Plan NPO VS Labs Pain management Control N/V Consult GI Imaging: MR of abdomen and pelvis Disposition Medical-surgical unit Anticipated hospitalization: 2 nights IVF: Continue Diet: Make NPO Activity: Bedrest Diagnostics: Check Labs, Repeat Labs in AM, MRI Anticipated Discharge: Home HECTOR ARREDONDO May 28, 2016 08:07
[2016-05-28 08:17] LABS: MEAN CORPUSCULAR HEMOGLOBIN 27.5 pg (27.0-33.0); MEAN CORPUSCULAR VOLUME 84.5 fl (80.0-96.0); WHITE BLOOD COUNT 11.7 K/mm3 (4.0-10.0)
[2016-05-28 08:25] LABS: MEAN CORPUSCULAR HGB CONC 32.6 g/dl (32.0-36.5); RED CELL DISTRIBUTION WIDTH 13.3 % (11.5-14.5)
[2016-05-28 08:26] LABS: BASO % 0.1 % (0.0-1.0); EOS # 0.1 K/mm3 (0.0-0.50); EOS % 1.2 % (0.0-3.0); LARGE UNSTAINED CELL # 0.1 K/mm3 (0.0-0.4); LARGE UNSTAINED CELL % 0.7 % (0.0-4.0); LYMPH # 1.7 K/mm3 (1.5-4.5); LYMPH % 14.4 % (24.0-44.0); MONO # 0.6 K/mm3 (0.0-0.8); MONO % 5.5 % (0.0-5.0); NEUTROPHILS # 9.2 K/mm3 (1.8-7.7); NEUTROPHILS % 78.2 % (36.0-66.0); PLATELET COUNT, AUTOMATED 255 k/mm3 (150-450)
[2016-05-28 08:27] LABS: DIFF SLIDE NUMBER 122
[2016-05-28 08:32] LABS: ALBUMIN 3.4 GM/DL (3.2-5.2); ALBUMIN/GLOBULIN RATIO 0.92 (1.00-1.93); ALKALINE PHOSPHATASE 267 U/L (45-117); ALT/SGPT 398 U/L (12-78); ANION GAP 8 MEQ/L (8-16); AST/SGOT 283 U/L (15-37); BILIRUBIN,TOTAL 0.5 MG/DL (0.2-1.0); BLOOD UREA NITROGEN 10 MG/DL (7-18); CALCIUM LEVEL 7.9 MG/DL (8.5-10.1); CARBON DIOXIDE LEVEL 29 MEQ/L (21-32); CHLORIDE LEVEL 108 MEQ/L (98-107); CREATININE FOR GFR 0.72 MG/DL (0.55-1.02); GLOMERULAR FILTRATION RATE > 60.0 (>60); GLUCOSE, FASTING 101 MG/DL (70-105); POTASSIUM SERUM 3.7 MEQ/L (3.5-5.1); SODIUM LEVEL 145 MEQ/L (136-145); TOTAL PROTEIN 7.1 GM/DL (6.4-8.2)
--- NOTE | 2016-05-28 08:35 | REPUSA ---
CLINICAL HISTORY: Abdominal pain. TECHNIQUE: Multiple axial, sagittal and coronal CT images were obtained through the abdomen and pelvi s after administration of oral and intravenous contrast material. COMMENTS: The liver is of decreased attenuation without mass or defect. There is no intra or extrahepatic bilia ry ductal dilatation. The spleen is normal. The gallbladder is within normal limits. The pancreas is enlarged with a surrounding fat stranding. There is no evidence of adrenal mass. Both kidneys demonstrate prompt and equal nephrograms. The kidneys are normal in size, shape and conf iguration. There is no evidence of renal or ureteral mass. No renal or ureteral calculi are identifie d. There is no hydroureter or hydronephrosis. No evidence for appendicitis. There is diffuse thickening of the third portion of the duodenum. No e vidence for small or large bowel obstruction. There is no evidence of abdominal ascites or lymphadeno cristela. There is no evidence of intrinsic or extrinsic bladder mass. There is no pelvic ascites or lymphadeno cristela. Mild diffuse thickening of the wall of the bladder. Images of the lung bases show no evidence of pleural or parenchymal mass. There are no pleural effusi ons. The bony structures are free of lytic or blastic lesions. Multilevel degenerative changes are seen in volving the thoracolumbar spine. Scattered calcifications are seen involving the aorta and major bran ches compatible with atherosclerosis. IMPRESSION: Acute pancreatitis. Mild thickening of the duodenum. This is a reactive finding. Mildly thickened bladder. Thank you for your kind referral of this patient.
[2016-05-28 09:00] VITALS: BP 125/78
[2016-05-28] MEDS: PANTOPRAZOLE 40MG INJ (PROTONIX) (C9113) IV SCH ×2 (10:52→20:08)
[2016-05-28] MEDS: ENOXAPARIN 40 MG/0.4 ML SYRINGE (J1650) SC SCH (10:53)
[2016-05-28] MEDS: PERCOCET 5MG/325MG TAB PO PRN ×2 (11:10→20:09)
[2016-05-28] MEDS ORDERED: ALPRAZolam 0.25 MG TAB PO ONE (11:30)
[2016-05-28 12:00] VITALS: BP 122/72
[2016-05-28 14:54] LABS: CHOLESTEROL LEVEL 156 MG/DL (<200); TRIGLYCERIDES LEVEL 44 MG/DL (<150)
--- NOTE | 2016-05-28 19:35 | REP ---
MRCP: MRCP exam was accomplished utilizing multiple heavily T2 weighted sequences in the axial and coronal planes, with MIP reconstruction images performed. Multiple subcentimeter gallstones are seen in the gallbladder. There is no intrahepatic or extrahepatic biliary dilatation. Common bile duct measures approximately 3 mm in maximum diameter. No definite stricture or stone in the common bile duct. The pancreatic duct is normal in caliber. There is diffuse high signal edema surrounding the pancreas compatible with pancreatitis. No other significant abnormality is seen. IMPRESSION: Multiple small gallstones in the gallbladder. No biliary dilation. No definite stones seen in the common bile duct. Findings of pancreatitis. Signed by Gustavo Humphrey MD 05/28/2016 08:12 P
[2016-05-28 20:00] VITALS: BP 112/66
[2016-05-28 23:59] VITALS: BP 102/65
[2016-05-29] MEDS: NS 1,000 ML IV SCH ×5 (00:11→17:45)
[2016-05-29 04:00] VITALS: BP 106/55
[2016-05-29 06:40] LABS: BASO % 0.4 % (0.0-1.0); EOS # 0.3 K/mm3 (0.0-0.50); LARGE UNSTAINED CELL # 0.1 K/mm3 (0.0-0.4); LARGE UNSTAINED CELL % 1.1 % (0.0-4.0); LYMPH # 1.7 K/mm3 (1.5-4.5); LYMPH % 24.3 % (24.0-44.0); MEAN CORPUSCULAR HEMOGLOBIN 27.1 pg (27.0-33.0); MEAN CORPUSCULAR HGB CONC 31.5 g/dl (32.0-36.5); MEAN CORPUSCULAR VOLUME 86.3 fl (80.0-96.0); MONO # 0.4 K/mm3 (0.0-0.8); NEUTROPHILS # 4.3 K/mm3 (1.8-7.7); NEUTROPHILS % 63.1 % (36.0-66.0); PLATELET COUNT, AUTOMATED 189 k/mm3 (150-450); RED CELL DISTRIBUTION WIDTH 13.3 % (11.5-14.5); WHITE BLOOD COUNT 6.7 K/mm3 (4.0-10.0)
[2016-05-29 06:55] LABS: ANION GAP 10 MEQ/L (8-16); BLOOD UREA NITROGEN 14 MG/DL (7-18); CARBON DIOXIDE LEVEL 24 MEQ/L (21-32); CHLORIDE LEVEL 109 MEQ/L (98-107); CREATININE FOR GFR 0.64 MG/DL (0.55-1.02); GLOMERULAR FILTRATION RATE > 60.0 (>60); GLUCOSE, FASTING 62 MG/DL (70-105); POTASSIUM SERUM 3.7 MEQ/L (3.5-5.1); SODIUM LEVEL 143 MEQ/L (136-145)
[2016-05-29 08:00] VITALS: BP 133/80
[2016-05-29] MEDS: PANTOPRAZOLE 40MG INJ (PROTONIX) (C9113) IV SCH ×2 (09:00→20:49)
[2016-05-29 09:04] LABS: ALBUMIN 2.7 GM/DL (3.2-5.2); ALBUMIN/GLOBULIN RATIO 0.87 (1.00-1.93); ALKALINE PHOSPHATASE 185 U/L (45-117); ALT/SGPT 203 U/L (12-78); AST/SGOT 79 U/L (15-37); BILIRUBIN,TOTAL 0.6 MG/DL (0.2-1.0); TOTAL PROTEIN 5.8 GM/DL (6.4-8.2)
[2016-05-29] MEDS: ENOXAPARIN 40 MG/0.4 ML SYRINGE (J1650) SC SCH (10:25)
[2016-05-29 12:00] VITALS: BP 109/59
--- NOTE | 2016-05-29 13:22 | IPNPDOC ---
Text Note Date of Service The patient was seen on 05/29/16. NOTE Subjective: Patient states her abdominal pain is improving. No nausea or vomiting. Objective: Vitals: (see below) General: No acute distress, laying comfortably in bed. HEENT: Moist mucous membranes. Neck: No JVD or lymphadenopathy Cardiac: RRR, No murmurs Pulm: Clear to auscultation b/l. No wheezing, rhonchi Abd: Mild tenderness at the upper quadrants. No rebound, guarding, rigidity.ND + BS Ext: No edema or cyanosis Labs (see below) Images: MRCP 05/28/16 MRCP exam was accomplished utilizing multiple heavily T2 weighted sequences in the axial and coronal planes, with MIP reconstruction images performed. Multiple subcentimeter gallstones are seen in the gallbladder. There is no intrahepatic or extrahepatic biliary dilatation. Common bile duct measures approximately 3 mm in maximum diameter. No definite stricture or stone in the common bile duct. The pancreatic duct is normal in caliber. There is diffuse high signal edema surrounding the pancreas compatible with pancreatitis. No other significant abnormality is seen. IMPRESSION: Multiple small gallstones in the gallbladder. No biliary dilation. No definite stones seen in the common bile duct. Findings of pancreatitis. Assessment/Plan 1. Acute pancreatitis likely secondary to gallstones. Patient likely had a gallstone that this past with associated transaminitis. MRI (see above). LFTs are trending down. Lipase trending down. Patient's abdominal pain is improving. We'll continue IV fluids with transition to clear fluids. Will consults surgery for cholecystectomy to prevent future episodes. Patient is , delivered last month. DVT prophy: Enoxaparin VS,Fishbone, I+O VS, Fishbone, I+O Laboratory Tests 05/29/16 06:18 Calcium Level 8.0 L, Aspartate Amino Transf (AST/SGOT) 79 H, Alanine Aminotransferase (ALT/SGPT) 203 H, Alkaline Phosphatase 185 H, Total Bilirubin 0.6, Total Protein 5.8 L, Albumin 2.7 #L, Red Blood Count 3.91 L, Mean Corpuscular Volume 86.3, Mean Corpuscular Hemoglobin 27.1, Mean Corpuscular Hemoglobin Concent 31.5 L, Red Cell Distribution Width 13.3, Neutrophils (%) ( Auto) 63.1, Lymphocytes (%) (Auto) 24.3, Monocytes (%) (Auto) 6.0 H, Eosinophils (%) (Auto) 5.0 H, Basophils (%) (Auto) 0.4, Neutrophils # (Auto) 4.3 , Lymphocytes # (Auto) 1.7, Monocytes # (Auto) 0.4, Eosinophils # (Auto) 0.3, Basophils # (Auto) 0.0 Vital Signs Date Time Temp Pulse Resp B/P Pulse Ox O2 Delivery O2 Flow Rate FiO2 05/29/16 12:00 98.5 82 20 109/59 97 05/29/16 10:33 Room Air I&O- Last 24 Hours up to 6 AM 05/29/16 06:00 Intake Total 4090 ml Output Total 700 ml Balance 3390 ml LULA TOPETE MD May 29, 2016 13:22
[2016-05-29 19:30] VITALS: BP 116/71
[2016-05-30] VITALS: BP 125/59
[2016-05-30] MEDS: NS 1,000 ML IV SCH ×2 (02:01→08:38)
[2016-05-30 04:30] VITALS: BP 112/68
[2016-05-30 06:48] LABS: BASO % 0.2 % (0.0-1.0); EOS # 0.4 K/mm3 (0.0-0.50); EOS % 6.1 % (0.0-3.0); LARGE UNSTAINED CELL # 0.1 K/mm3 (0.0-0.4); LARGE UNSTAINED CELL % 1.8 % (0.0-4.0); LYMPH # 1.8 K/mm3 (1.5-4.5); LYMPH % 25.7 % (24.0-44.0); MEAN CORPUSCULAR HEMOGLOBIN 27.2 pg (27.0-33.0); MEAN CORPUSCULAR HGB CONC 32.6 g/dl (32.0-36.5); MEAN CORPUSCULAR VOLUME 83.4 fl (80.0-96.0); MONO # 0.4 K/mm3 (0.0-0.8); MONO % 6.6 % (0.0-5.0); NEUTROPHILS % 59.5 % (36.0-66.0); PLATELET COUNT, AUTOMATED 220 k/mm3 (150-450); RED CELL DISTRIBUTION WIDTH 12.9 % (11.5-14.5); WHITE BLOOD COUNT 6.7 K/mm3 (4.0-10.0)
[2016-05-30 07:09] LABS: ALBUMIN 2.7 GM/DL (3.2-5.2); ALBUMIN/GLOBULIN RATIO 0.82 (1.00-1.93); ALKALINE PHOSPHATASE 154 U/L (45-117); ALT/SGPT 137 U/L (12-78); ANION GAP 8 MEQ/L (8-16); AST/SGOT 34 U/L (15-37); BILIRUBIN,TOTAL 0.3 MG/DL (0.2-1.0); BLOOD UREA NITROGEN 4 MG/DL (7-18); CALCIUM LEVEL 7.9 MG/DL (8.5-10.1); CARBON DIOXIDE LEVEL 25 MEQ/L (21-32); CHLORIDE LEVEL 111 MEQ/L (98-107); GLOMERULAR FILTRATION RATE > 60.0 (>60); GLUCOSE, FASTING 88 MG/DL (70-105); POTASSIUM SERUM 3.4 MEQ/L (3.5-5.1); SODIUM LEVEL 144 MEQ/L (136-145)
[2016-05-30 08:00] VITALS: BP 116/74
[2016-05-30] MEDS ORDERED: POTASSIUM CHLORIDE 10 MEQ SR TABLET PO ONE (08:00)
[2016-05-30] MEDS: PANTOPRAZOLE 40MG INJ (PROTONIX) (C9113) IV SCH (08:36)
[2016-05-30] MEDS: ENOXAPARIN 40 MG/0.4 ML SYRINGE (J1650) SC SCH (08:37)
--- NOTE | 2016-05-30 15:25 | DS.PDOC ---
Discharge Summary General Date of Admission May 28, 2016 at 07:07 Date of Discharge May 30, 2016 at 13:10 Attending Physician: LULA TOPETE MD Specialist/Consultants Involve: ALBA DICK DO Discharge Summary PROCEDURES PERFORMED DURING STAY: None. ADMITTING/DISCHARGE DIAGNOSES: 1. Acute Gallstone Pancreatitis. COMPLICATIONS/CHIEF COMPLAINT: Abd pain HISTORY OF PRESENT ILLNESS/HOSPITAL COURSE: . This is a 36-year-old female with no significant past medical history presents complaining of abdominal pain. Patient states she is delivered a month ago and since then has been complaining of epigastric and upper quadrant abdominal pain. Patient states the pains radiating to her back. States that the pain has progressed to the point where patient was unable to tolerate diet. On presentation patient was found to have pancreatitis with a lipase greater than 80,000, and inflammatory changes on her CAT scan of the abdomen and pelvis. Patient was also noted to have transaminitis. Transaminitis as well as the lipase have been trending down since admission. Her abdominal pain has resolved. MRCP was done, revealing no common bile duct obstruction, and this may be secondary to a stone has passed from the gallbladder. Dr. Harris has been consulted with recommendations for continuing liquid diets until Friday when the patient is evaluated by him in the office. Patient will then be scheduled for cholecystectomy. I have explained the above to the patient, who will continue clear liquid diet at home, nongreasy nonfatty, and will follow-up closely with Dr. Dick. We will also schedule patient for primary care physician follow-up as she does not have a PCP. DISCHARGE MEDICATIONS: Please see below. ALLERGIES: Please see below. PHYSICAL EXAMINATION ON DISCHARGE: Vitals: (see below) General: No acute distress, laying comfortably in bed. HEENT: Moist mucous membranes. Neck: No JVD or lymphadenopathy Cardiac: RRR, No murmurs Pulm: Clear to auscultation b/l. No wheezing, rhonchi Abd: NT/ND + BS Ext: No edema or cyanosis LABORATORY DATA: Please see below. IMAGING: MRCP on 05/28/16 IMPRESSION: Multiple small gallstones in the gallbladder. No biliary dilation. No definite stones seen in the common bile duct. Findings of pancreatitis. PROGNOSIS: Good ACTIVITY: As tolerated. DIET: Liquid diet. Non-greasy/nonfatty foods until patient follows up with Dr. Dick on Friday. DISCHARGE PLAN: Discharge home DISPOSITION: 01 Home, Self-Care. DISCHARGE INSTRUCTIONS: 1. Follow-up with PCP in 1-[address] Dick on Friday06/04/16. DISCHARGE CONDITION: Stable. TIME SPENT ON DISCHARGE: Greater than 30 minutes. Vital Signs/I&Os Vital Signs Date Time Temp Pulse Resp B/P Pulse Ox O2 Delivery O2 Flow Rate FiO2 05/30/16 08:00 96.5 58 18 116/74 97 Room Air I&O- Last 24 Hours up to 6 AM 05/30/16 06:00 Intake Total 6185 ml Output Total 6200 ml Balance -15 ml Laboratory Data Labs 24H Laboratory Tests 2 05/29/16 17:22: Urine Amorphous Sediment , Urine Appearance CLEAR, Urine Color STRAW, Urine pH 5.0, Urine Specific [place] 1.004, Urine Protein NEGATIVE, Urine Glucose (UA) NEGATIVE, Urine Ketones 1+H, Urine Urobilinogen 0.2, Urine Bilirubin NEGATIVE, Urine Leukocyte Esterase TRACEH, Urine Bacteria (Auto) NEGATIVE, Urine Blood NEGATIVE, Urine Calcium Carbonate Cryst(Auto) , Urine Calcium Oxalate Cryst ( Auto) , Urine Calcium Phosphate Disha (Auto) , Urine Cellular Casts , Urine Cystine Crystals , Urine Granular Casts (Auto) , Urine Hyaline Casts (Auto) 0, Urine Leucine Crystals , Urine Mucus (Auto) SMALL, Urine Nitrite NEGATIVE, Urine Oval Fat Bodies (Auto) , Urine RBC (Auto) 3, Urine Renal Epithelial Cells , Urine Sperm (Auto) , Urine Squamous Epithelial Cells 1, Urine Transitional Epithelial Cells , Urine Trichomonas (Auto) , Urine Triple Phosphate Cryst (Auto ) , Urine Tyrosine Crystals , Urine Uric Acid Crystals (Auto) , Urine WBC (Auto ) 8H, Urine Waxy Casts (Auto) , Urine Yeast-Like Cells (Auto) 05/30/16 06:16: Blood Urea Nitrogen 4#L, Creatinine 0.60, Sodium Level 144, Potassium Level 3.4L , Chloride Level 111H, Carbon Dioxide Level 25, Calcium Level 7.9L, Aspartate Amino Transf (AST/SGOT) 34, Alanine Aminotransferase (ALT/SGPT) 137H, Alkaline Phosphatase 154H, Total Bilirubin 0.3, Total Protein 6.0L, Albumin 2.7L, Albumin /Globulin Ratio 0.82L, Anion Gap 8, White Blood Count 6.7, Red Blood Count 3.96L , Hemoglobin 10.8L, Hematocrit 33.0L, Mean Corpuscular Volume 83.4, Mean Corpuscular Hemoglobin 27.2, Mean Corpuscular Hemoglobin Concent 32.6, Red Cell Distribution Width 12.9, Platelet Count 220, Neutrophils (%) (Auto) 59.5, Lymphocytes (%) (Auto) 25.7, Monocytes (%) (Auto) 6.6H, Eosinophils (%) (Auto) 6.1H, Basophils (%) (Auto) 0.2, Neutrophils # (Auto) 4.0, Lymphocytes # (Auto) 1.8, Monocytes # (Auto) 0.4, Eosinophils # (Auto) 0.4, Basophils # (Auto) 0.0, Glomerular Filtration Rate > 60.0, Large Unclassified Cells # 0.1, Large Unclassified Cells % 1.8, Lipase 838H CBC/BMP Laboratory Tests 05/30/16 06:16 Calcium Level 7.9 L, Aspartate Amino Transf (AST/SGOT) 34, Alanine Aminotransferase (ALT/SGPT) 137 H, Alkaline Phosphatase 154 H, Total Bilirubin 0.3, Total Protein 6.0 L, Albumin 2.7 L, Red Blood Count 3.96 L, Mean Corpuscular Volume 83.4, Mean Corpuscular Hemoglobin 27.2, Mean Corpuscular Hemoglobin Concent 32.6, Red Cell Distribution Width 12.9, Neutrophils (%) (Auto ) 59.5, Lymphocytes (%) (Auto) 25.7, Monocytes (%) (Auto) 6.6 H, Eosinophils (% ) (Auto) 6.1 H, Basophils (%) (Auto) 0.2, Neutrophils # (Auto) 4.0, Lymphocytes # (Auto) 1.8, Monocytes # (Auto) 0.4, Eosinophils # (Auto) 0.4, Basophils # ( Auto) 0.0 Discharge Medications No Active Prescriptions or Reported Meds Allergies Coded Allergies: No Known Allergies (Unverified , 02/07/16) LULA TOPETE MD May 30, 2016 15:25
--- NOTE | 2016-05-31 06:41 | CR ---
DATE OF CONSULTATION: 05/29/2016 CHIEF COMPLAINT: Gallstone pancreatitis. HISTORY OF PRESENT ILLNESS: The patient is a 36-year-old female who is about 1 month . She has had multiple problems with abdominal pain radiating to her back throughout her and since delivery it has been getting progressively worse. For the past 4 days, the pain has been getting worse, extending into her back. The pain has been getting more sharp. She has had a lot of nausea and vomiting with this. She came into the emergency room on 05/28/2016 and was diagnosed with gallstone pancreatitis. She had CT and MRI completed which have shown no signs of choledocholithiasis. Her liver enzymes have been improving and she would like to consider having surgery done during this admission. On exam, her abdominal pain is much improved. She denies any nausea or vomiting. No changes in bowel movements. Her abdomen is soft and just slightly tender. She has been started on a clear liquid diet already and is tolerating that appropriately. No recent trauma to the area. No other surgeries to the abdomen. PAST MEDICAL HISTORY: Negative. PAST SURGICAL HISTORY: in 2006. ALLERGIES: None. HOME MEDICATIONS: None. SOCIAL HISTORY: Denies drug, alcohol, tobacco abuse. FAMILY HISTORY: Noncontributory. REVIEW OF SYSTEMS: Pertinent positives in history of present illness (HPI). PHYSICAL EXAMINATION: General: Alert and oriented times three. No acute distress. Vitals: Temperature 98.5, pulse 82, respirations 20, blood pressure 109/59, pulse oximetry 97% in room air. HEENT: Pupils equally round, react to light and accommodation. Heart: S1, S2. Regular rate and rhythm. Lungs: Clear to auscultation bilaterally. Abdomen: Soft. Tender to palpation in epigastric. No rebounding, guarding or rigidity. Bowel sounds positive. Extremities: Without clubbing, cyanosis or edema. LABORATORY DATA: White count 6.7, hemoglobin 10.6, total bilirubin 0.6, AST 79 down from 726 on admission, ALT 203 down from 548 on admission, lipase 2067 down from 88,160. IMAGING: CT of abdomen and pelvis shows acute pancreatitis, thickening of the duodenum and thickening of the bladder. Ultrasound shows cholelithiasis. No evidence of acute cholecystitis. Common bile duct of 4 mm. No signs of gallbladder wall thickening or pericholecystic fluid. ASSESSMENT/PLAN: Patient is a 36-year-old female with gallstone pancreatitis without choledocholithiasis or acute cholecystitis. Due to the severity of the pancreatitis and the findings of marty-pancreatic inflammation and duodenal inflammation on CT scan, recommendation is to hold off on surgery during this admission. If her enzymes continue to improve over the next 24 hours, she can be discharged home with a liquid diet and non fatty solid food diet. I will have her follow up with me in the office on Friday with plan to operate in a week and a half to two weeks once the inflammation has subsided. I did explain to the patient that she could have surgery during this admission; however, the risks involved with surgery and dissection are much higher under the acute inflammation rather than waiting a couple of weeks. She completely understands and is also aware to call me and return if her symptoms come back and we will plan to do her procedure sooner if necessary. Thank you for the consult.
== END 2016-05-30 13:10 | disposition home or self-care (01) | DRG 561 ==
LOC: M ED 05-28 00:33 → M ED INP 05-28 07:07 → M PED 05-28 08:56
PROVIDERS: ADMIT Internal Medicine; ATTEND Internal Medicine
DX: O99.63 Diseases of the digestive system complicating the puerperium (principal); K85.10 Biliary acute pancreatitis without necrosis or infection

== ENCOUNTER 2016-06-06 20:32 | Inpatient (IN) | payer MEDICAID ==
[~2016-06-06] VITALS: Ht 180.3 cm; Wt 90.3 kg
[~2016-06-06 20:32] MED LIST changes: -COLA100C PO; +COLA100C3 PO
[2016-06-06] MEDS ORDERED: MORPHINE 4 MG/ML 1ML SYRINGE IV ONE (22:15)
[2016-06-06] MEDS ORDERED: NS 1,000 ML IV ONE (22:15)
[2016-06-06] MEDS ORDERED: ONDANSETRON 4MG/2ML VIAL (J2405) IV ONE (22:15)
[2016-06-06] MEDS ORDERED: PANTOPRAZOLE 40MG INJ (PROTONIX) (C9113) IV ONE (22:15)
[2016-06-06 22:59] LABS: BASO % 0.2 % (0.0-1.0); EOS # 0.1 K/mm3 (0.0-0.50); EOS % 0.6 % (0.0-3.0); LARGE UNSTAINED CELL # 0.1 K/mm3 (0.0-0.4); LARGE UNSTAINED CELL % 0.7 % (0.0-4.0); LYMPH # 1.2 K/mm3 (1.5-4.5); LYMPH % 6.4 % (24.0-44.0); MEAN CORPUSCULAR HEMOGLOBIN 26.6 pg (27.0-33.0); MEAN CORPUSCULAR HGB CONC 32.5 g/dl (32.0-36.5); MEAN CORPUSCULAR VOLUME 81.8 fl (80.0-96.0); MONO # 0.8 K/mm3 (0.0-0.8); NEUTROPHILS # 14.1 K/mm3 (1.8-7.7); PLATELET COUNT, AUTOMATED 350 k/mm3 (150-450); RED CELL DISTRIBUTION WIDTH 13.1 % (11.5-14.5); WHITE BLOOD COUNT 16.2 K/mm3 (4.0-10.0)
[2016-06-06 23:08] LABS: ALBUMIN 4.1 GM/DL (3.2-5.2); ALBUMIN/GLOBULIN RATIO 1.11 (1.00-1.93); ALKALINE PHOSPHATASE 164 U/L (45-117); ALT/SGPT 56 U/L (12-78); AMYLASE 136 U/L (25-115); ANION GAP 9 MEQ/L (8-16); AST/SGOT 53 U/L (15-37); BILIRUBIN,DIRECT 0.1 MG/DL (0.0-0.2); BILIRUBIN,TOTAL 0.3 MG/DL (0.2-1.0); BLOOD UREA NITROGEN 13 MG/DL (7-18); CALCIUM LEVEL 8.8 MG/DL (8.5-10.1); CARBON DIOXIDE LEVEL 26 MEQ/L (21-32); CHLORIDE LEVEL 104 MEQ/L (98-107); CREATININE FOR GFR 0.79 MG/DL (0.55-1.02); GLOMERULAR FILTRATION RATE > 60.0 (>60); GLUCOSE, FASTING 107 MG/DL (70-105); POTASSIUM SERUM 4.1 MEQ/L (3.5-5.1); SODIUM LEVEL 139 MEQ/L (136-145); TOTAL PROTEIN 7.8 GM/DL (6.4-8.2)
[2016-06-07] MEDS ORDERED: MORPHINE 2 MG/ML 1ML SYRINGE IV PRN (01:15)
--- NOTE | 2016-06-07 01:24 | HPEPDOC ---
General Date of Admission Jun 06, 2016 at 23:44 Attending Physician: SEE MARIN MD Chief Complaint The patient is a 36-year-old female admitted with a reason for visit of Acute Pancreatitis. Source: Patient, RN notes reviewed, Old records Exam Limitations: No limitations Timing/Duration: This afternoon Associated Symptoms: Chills, Nausea, Vomiting History of Present Illness Ms. Denny is a 36-year-old female who presents today for nausea and vomiting. Past medical history is significant for acute pancreatitis. Patient states that on the day of her discharge 05/30/2016 she was sick and vomited. The vomit was nonbloody. She continued with the diet that she was prescribed in the hospital which included broth, Jell-O, and liquids. She felt much better following this diet. She had an appointment with the general surgeon today. She asked if she could transition to more solid foods. Per patient, she was given the go ahead. She states that she ate some light, fluffy bread and that a friend made pizza with pizza dough and chicken. After consuming this meal she developed stomach and back pain (which she is unable to describe). She states that "feels like she wants to keel over". She admits to nausea, 1 episode of watery nonbloody diarrhea, chills which started after lunch , and one intermittent episode of difficulty breathing. She states that she is unable to lay flat secondary to the pain in her stomach and back. Patient denies headache, acute changes to vision and her hearing, sore throat, chest pain, shortness of breath, numbness and/or tingling, swelling, acute changes to urine, melena, hematochezia, joint pain, muscle aches or pains, fever , night sweats. Patient was recently hospitalized from 05/28/2016 to 05/30/2016. Patient presented with abdominal pain. She had recently delivered a baby a month ago and had been complaining of epigastric and upper quadrant abdominal pain. States pain radiated to her back. The pain progressed and patient was unable to tolerate diet. Found to have a lipase greater than 80,000 and there were inflammatory changes noted on her CT scan of abdomen and pelvis. Patient was also noted to have transaminitis. Trended down during hospitalization. MRCP was done. General surgery was consulted and they recommended the patient remain on a liquid diet until outpatient follow-up. Would be scheduled for a cholecystectomy at a later point. Hospitalist service was consulted and patient was admitted for further medical management. Home Medications Scheduled (Senna Plus 8.6-50 mg) 1 Tab Tab 1 TAB PO BID Ciprofloxacin HCl (Cipro) 500 Mg Tab 500 MG PO BID Metronidazole (Flagyl) 500 Mg Tab 500 MG PO Q8H FOR 10 DAYS Pantoprazole Sodium (Pantoprazole Sodium) 40 Mg Tab 40 MG PO DAILY Scheduled PRN Ondansetron (Ondansetron Odt) 4 Mg Tab 4 MG PO TIDP PRN PRN NAUSEA Oxycodone/Acetaminophen (Percocet 5MG/325MG Tablet) 1 Tab Tab 1 TAB PO Q4HP PRN PRN MODERATE PAIN (PS 5-7) Allergies Coded Allergies: No Known Allergies (Unverified , 06/06/16) Past Medical History Medical History 1. Pancreatitis Surgical History 1. section x1, 10 years ago 2. [place] teeth removal Family History Significant Family History: Other (adopted) Social History * Smoker: Denies Alcohol: other (former EtOH user, 2-3 drinks/night, quit 2 years ago) Drugs: denies Recent Travel/Sick Contacts: Denies: Recent travel (remote travel to [facility], resided in [place] for 7 years) Lives independently with daughter Divorcee Other children (son and daughter) live with ex- and his mother Unemployed at this time, caring for daughter Denies environmental exposures Denies pets in the home Review of Symptoms Constitutional: Reports: Chills (started after lunch), Denies: Fever, Night Sweats, Weakness Eyes: Reports: Other (admits to problems with vision, but denies blurriness, diplopia, acute transient ) ENT: Denies: Head Aches, Sinus Congestion, Sore Throat Skin: Denies: Lesions, Rash Pulmonary: Reports: Other Symptoms (intermittent difficulty breathing), Denies: Cough, Dyspnea, Pleuritic Chest Pain Cardiovascular: Denies: Chest Pain Gastrointestinal: Reports: Abdominal Pain, Diarrhea (one episode), Nausea, Vomiting (non-bloody), Denies: Constipation, Hematochezia, Melena Genitourinary: Denies: Dysuria, Frequency, Hematuria, Incontinence Hematologic: Denies: Bruising Musculoskeletal: Reports: Back Pain, Denies: Muscle Pain Neurological: Denies: Numbness, Weakness Physical Examination General Exam: Positive: Alert, Cooperative, No Acute Distress Eye Exam: Positive: Conjunctiva & lids normal, EOMI, PERRLA, Negative: Sclera icteric ENT Exam: Positive: Atraumatic, Mucous membr. moist/pink, Nares Patent, Pharynx Normal, Tongue Midline Neck Exam: Positive: Other (trachea midline), Supple, Negative: JVD, Lymphadenopathy, thyromegaly Chest Exam: Positive: Clear to auscultation, Normal air movement, Other (good airway excursion) Heart Exam: Positive: Normal S1, Normal S2, Rate Normal, Regular Rhythm, Negative: Murmurs, Rubs Abdomen Exam: Positive: Normal bowel sounds, Other, Soft, Negative: Hepatospenomegaly, Tenderness Extremity Exam: Positive: Normal pulses, Negative: Clubbing, Cyanosis, Edema, Swelling, Tenderness Skin Exam: Positive: Nl turgor and temperature, Other skin issue (dry skin noted on upper and lower extremities bilaterally) Neuro Exam: Positive: Cranial Nerves 3-12 NL, Normal Speech Vital Signs T 96.6 HR 78 RR 18 BP 118/56 O2 99% RA Laboratory Data Labs 24H Laboratory Tests 2 06/06/16 22:40: Aspartate Amino Transf (AST/SGOT) 53H, Alanine Aminotransferase (ALT/SGPT) 56, Alkaline Phosphatase 164H, Total Bilirubin 0.3, Direct Bilirubin 0.1, Albumin 4.1, Albumin/Globulin Ratio 1.11, Amylase Level 136H, Anion Gap 9, White Blood Count 16.2H, Red Blood Count 4.82, Hemoglobin 12.8, Hematocrit 39.4, Mean Corpuscular Volume 81.8, Mean Corpuscular Hemoglobin 26.6L, Mean Corpuscular Hemoglobin Concent 32.5, Red Cell Distribution Width 13.1, Platelet Count 350, Neutrophils (%) (Auto) 87.0H, Lymphocytes (%) (Auto) 6.4L, Monocytes (%) (Auto) 5.0, Eosinophils (%) (Auto) 0.6, Basophils (%) (Auto) 0.2, Neutrophils # (Auto) 14.1H, Lymphocytes # (Auto) 1.2L, Monocytes # (Auto) 0.8, Eosinophils # (Auto) 0.1, Basophils # (Auto) 0.0, Calcium Level 8.8, Glomerular Filtration Rate > 60.0, Large Unclassified Cells # 0.1, Large Unclassified Cells % 0.7, Lipase 27604B, Total Protein 7.8, Urine Amorphous Sediment , Urine Appearance CLEAR, Urine Color YELLOW, Urine pH 6.0, Urine Specific [place] 1.009, Urine Protein NEGATIVE, Urine Glucose (UA) NEGATIVE, Urine Ketones NEGATIVE, Urine Urobilinogen 0.2, Urine Bilirubin NEGATIVE, Urine Leukocyte Esterase TRACEH, Urine Bacteria (Auto) NEGATIVE, Urine Blood NEGATIVE, Urine Calcium Carbonate Cryst(Auto) , Urine Calcium Oxalate Cryst (Auto) , Urine Calcium Phosphate Disha (Auto) , Urine Cellular Casts , Urine Cystine Crystals , Urine Granular Casts ( Auto) , Urine Hyaline Casts (Auto) 0, Urine Leucine Crystals , Urine Mucus (Auto ) SMALL, Urine Nitrite NEGATIVE, Urine Oval Fat Bodies (Auto) , Urine RBC (Auto ) 3, Urine Renal Epithelial Cells , Urine Sperm (Auto) , Urine Squamous Epithelial Cells 1, Urine Transitional Epithelial Cells , Urine Trichomonas ( Auto) , Urine Triple Phosphate Cryst (Auto) , Urine Tyrosine Crystals , Urine Uric Acid Crystals (Auto) , Urine WBC (Auto) 2, Urine Waxy Casts (Auto) , Urine Yeast-Like Cells (Auto) CBC/BMP Laboratory Tests 06/06/16 22:40 Red Blood Count 4.82, Mean Corpuscular Volume 81.8, Mean Corpuscular Hemoglobin 26.6 L, Mean Corpuscular Hemoglobin Concent 32.5, Red Cell Distribution Width 13.1, Neutrophils (%) (Auto) 87.0 H, Lymphocytes (%) (Auto) 6.4 L, Monocytes (% ) (Auto) 5.0, Eosinophils (%) (Auto) 0.6, Basophils (%) (Auto) 0.2, Neutrophils # (Auto) 14.1 H, Lymphocytes # (Auto) 1.2 L, Monocytes # (Auto) 0.8, Eosinophils # (Auto) 0.1, Basophils # (Auto) 0.0 Assessment/Plan This is a 36 year old female who presents with nausea and vomiting likely secondary to a recurrence of acute pancreatitis. Problems (1) Acute pancreatitis Status: Acute Problem Text: Nothing by mouth Abdominal, right upper quadrant ultrasound Pain medications: Percocet, morphine, Tylenol Zofran General surgery consult Plan / VTE VTE Prophylaxis Ordered?: Yes (TEDs and sequentials) Plan Plan Acute pancreatitis Patient has a white count of 16.2 which is likely reactive. AST and ALT are 53 and 56, respectively. Alkaline phosphatase is 164. Lipase is 17,299 and amylase is 136. This is likely recurrence of patient's pancreatitis. We'll make patient nothing by mouth, obtain a right upper quadrant abdominal ultrasound, treat patient's pain with Percocet, morphine 2 g every 2 hours, and Tylenol as needed. Provide Zofran for patient's nausea. Consult general surgery. Monitor with daily CBC and CMP. Obtaining a lipase in the morning. DVT prophylaxis: TEDs and sequentials Diet: Nothing by mouth Disposition Admit to the medical surgical unit Anticipated hospitalization: 2 nights Attending: Dr. Martinez Consultation: General surgery IVF: Initiate (250 mls/hr) Diet: Make NPO Activity: Bedrest (with commode privilege) Diagnostics: Check Labs, Repeat Labs in AM, Ultrasound (right upper quadrant, abdomen) Anticipated Discharge: Home Attending Note Attending Note I, See Marin, have both independently examined this patient as well as reviewed the documentation. I have discussed in detail with the resident the findings and plan of treatment as documented in the residents documentation. I will continue to follow the patient and offer further guidance to the patients care as necessary during this hospital stay. HECTOR ARREDONDO Jun 07, 2016 01:04 SEE MARIN MD Jun 19, 2016 13:52
[2016-06-07 01:30] VITALS: BP 125/64
--- NOTE | 2016-06-07 01:40 | REPUSA ---
CLINICAL HISTORY: Abdominal pain. TECHNIQUE: Realtime sonographic images were obtained in multiple projections. COMMENTS: Comparison to the prior exam of 05/28/2016. The liver is of normal size, parenchyma demonstrates normal echogenicity. No discrete hepatic mass is seen. There is no intra or extrahepatic biliary ductal dilatation. CBD measures 3.8mm. The gallbladder is p hysiologically distended with evidence of calculi. The gallbladder wall is thickened measuring 4.2 mm and there is no pericholecystic fluid. There is no abdominal ascites. The right kidney measures 11.9x6.2x4.9 cm , free of hydronephrosis. IMPRESSION: Cholelithiasis. Diffuse thickening of the wall of the gallbladder. This was not present on prior exam. Thank you for your kind referral of this patient.
[2016-06-07] MEDS: NS 1,000 ML IV SCH ×6 (01:41→21:34)
[2016-06-07 07:45] VITALS: BP 102/63
[2016-06-07] MEDS: CIPROFLOXACIN 400 MG in APPROPRIATE DILUENT 1 EA IV SCH ×2 (07:55→19:46)
[2016-06-07 08:14] LABS: MEAN CORPUSCULAR HEMOGLOBIN 27.3 pg (27.0-33.0); MEAN CORPUSCULAR HGB CONC 32.5 g/dl (32.0-36.5); MEAN CORPUSCULAR VOLUME 84.1 fl (80.0-96.0); RED CELL DISTRIBUTION WIDTH 13.1 % (11.5-14.5); WHITE BLOOD COUNT 6.3 K/mm3 (4.0-10.0)
[2016-06-07 08:17] LABS: ALBUMIN 3.2 GM/DL (3.2-5.2); ALBUMIN/GLOBULIN RATIO 0.89 (1.00-1.93); ALKALINE PHOSPHATASE 129 U/L (45-117); ALT/SGPT 43 U/L (12-78); ANION GAP 9 MEQ/L (8-16); AST/SGOT 22 U/L (15-37); BILIRUBIN,TOTAL 0.3 MG/DL (0.2-1.0); BLOOD UREA NITROGEN 10 MG/DL (7-18); CALCIUM LEVEL 8.1 MG/DL (8.5-10.1); CARBON DIOXIDE LEVEL 26 MEQ/L (21-32); CHLORIDE LEVEL 109 MEQ/L (98-107); CREATININE FOR GFR 0.79 MG/DL (0.55-1.02); GLOMERULAR FILTRATION RATE > 60.0 (>60); GLUCOSE, FASTING 91 MG/DL (70-105); SODIUM LEVEL 144 MEQ/L (136-145); TOTAL PROTEIN 6.8 GM/DL (6.4-8.2)
[2016-06-07] MEDS ORDERED: metroNIDAZOLE 500 MG in APPROPRIATE DILUENT 1 EA IV SCH (09:00)
[2016-06-07] MEDS: PANTOPRAZOLE 40MG TAB (PROTONIX) PO SCH (09:26)
[2016-06-07] MEDS: metroNIDAZOLE 500 MG in APPROPRIATE DILUENT 1 EA IV SCH ×3 (09:27→21:14)
[2016-06-07 16:00] VITALS: BP 95/58
--- NOTE | 2016-06-07 17:52 | IPN ---
DATE: 06/07/2016 Patient seen and examined. Reporting improvement of pain. No further nausea, vomiting. Patient admitted overnight. Denies any chest pain, pressure, or discomfort. Denies any shortness of breath. VITAL SIGNS: Temperature 97.9, pulse 67, respirations 18, blood pressure 102/63, pulse oximetry 98% on room air. LABORATORY DATA: WBC 6.3, hemoglobin and hematocrit 10.9/33.7, platelets 295. Chemistry: Sodium 144, potassium 4, chloride 109, bicarbonate 26, BUN 10, creatinine 0.79. PHYSICAL EXAMINATION: GENERAL: Patient alert and oriented times three, sleepy in no acute distress. HEENT: Normocephalic, atraumatic. PULMONARY: Bilaterally clear to auscultation. CARDIAC: Regular rate and rhythm. Normal S1, S2. ABDOMEN: Epigastric tenderness. No rebound. No guarding. Positive bowel sounds. EXTREMITIES: No edema, bilateral lower extremities. EKG: Sinus rhythm. No ST-segment changes. Normal EKG. ASSESSMENT AND PLAN: This is a 36-year-old female patient with underlying medical history of pancreatitis, recently discharged from the hospital. Is in the process of following with general surgery, Dr. Dick, for cholecystectomy for gallstone pancreatitis. Developed worsening abdominal pain with nausea, vomiting when her diet was advanced. 1. Acute gallstone pancreatitis. General surgery, Dr. Dick, has been consulted. Intravenous (IV) fluids. Nothing by mouth. EKG is appreciated. Patient's baseline metabolic equivalents (METS) greater than 4. Able to walk a mile without any problem. Patient is optimized for surgery. Low risk for intermittent-risk surgery. Pain regimen is prescribed. IV fluids. Cipro and Flagyl, Protonix. 2. Deep vein thrombosis (DVT) prophylaxis. Heparin subcutaneous. DISPOSITION PLANNING: Pending surgery on Friday.
--- NOTE | 2016-06-07 18:33 | ECGEPIP ---
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
[2016-06-07 20:00] VITALS: BP 113/67
[2016-06-07] MEDS: HEPARIN SOD (PORCINE) 5000 UNITS/ML VIAL SQ SCH (21:14)
[2016-06-08] VITALS: BP 111/60
--- NOTE | 2016-06-08 00:33 | CR ---
OF CONSULTATION: 06/07/2016 CHIEF COMPLAINT: Epigastric pain. HISTORY OF PRESENT ILLNESS: The patient is a 36-year-old female well-known to me for gallstone pancreatitis. She was in the hospital last week with a lipase of over 80,000 and severe inflammatory changes both of the duodenum and pancreas. Recommendation was to discharge home, follow up with me in the office, which she did yesterday and we planned for surgery next week. However, after being seen in the office yesterday, she went and had some chicken and pizza, developed severe nausea, vomiting, and epigastric pain again. Came back into the emergency room last evening, and found that her lipase was elevated up over 17,000 again as well as new ultrasound findings of likely cholecystitis. She was admitted to the hospital service and I was consulted this morning. Today, she has been nothing by mouth overnight, IV fluids. She feels more comfortable. However, she still has epigastric tenderness. I told her that we would keep her on ice chips and sips of water over the weekend along with some antibiotics and plan for surgery on Friday afternoon. PAST MEDICAL HISTORY: Pancreatitis. PAST SURGICAL HISTORY: , wisdom teeth removal. FAMILY HISTORY: Noncontributory. HOME MEDICATIONS: None. ALLERGIES: None. SOCIAL HISTORY: Denies drug, alcohol, or tobacco usage. REVIEW OF SYSTEMS: Pertinent positives listed in HPI. PHYSICAL EXAMINATION: GENERAL: Awake, alert, and oriented times three, in no acute stress. VITALS: Temperature 98.9, pulse 78, respirations 18, blood pressure 122/58, pulse ox 98% in room air. HEENT: Pupils equal, round and react to light and accommodation. HEART: S1-S2 regular rate and rhythm. LUNGS: Clear to auscultation bilaterally. ABDOMEN: Soft, tender to palpation in epigastric and right upper quadrant. No rebound, guarding, or rigidity. Bowel sounds positive. EXTREMITIES: No cyanosis, clubbing, or edema. LABORATORY DATA: White count 16.2, hemoglobin 12.8, platelets 350. Sodium 139, potassium 4.1, creatinine 0.79, total bilirubin 10.3, AST 53, ALT 56, alkaline phosphatase 164, lipase 17,299. IMAGING: Ultrasound of the gallbladder shows diffuse thickening of the wall of the gallbladder which is new from prior exam. Common bile duct is still 3.8 mm. She has cholelithiasis. ASSESSMENT AND PLAN: The patient is a 36-year-old female with gallstone pancreatitis. Recommendation is to proceed with laparoscopic possible open cholecystectomy. However, we will wait until her pancreatitis resolves and her inflammation calms down. Likely we will plan for surgery on Friday afternoon. She will be kept nothing by mouth over the weekend with just ice chips and sips of water. She is also started on antibiotics for the cholecystitis. Once her inflammation cools down over the weekend, we will do surgery and then likely plan for discharge home next Friday.
[2016-06-08] MEDS: NS 1,000 ML IV SCH ×4 (03:17→20:19)
[2016-06-08] MEDS: metroNIDAZOLE 500 MG in APPROPRIATE DILUENT 1 EA IV SCH ×4 (03:42→21:39)
[2016-06-08 06:50] LABS: MEAN CORPUSCULAR HEMOGLOBIN 26.8 pg (27.0-33.0); MEAN CORPUSCULAR HGB CONC 31.9 g/dl (32.0-36.5); MEAN CORPUSCULAR VOLUME 84.1 fl (80.0-96.0); RED CELL DISTRIBUTION WIDTH 13.1 % (11.5-14.5); WHITE BLOOD COUNT 5.8 K/mm3 (4.0-10.0)
[2016-06-08 07:07] LABS: ALBUMIN 2.9 GM/DL (3.2-5.2); ALBUMIN/GLOBULIN RATIO 0.85 (1.00-1.93); ALKALINE PHOSPHATASE 116 U/L (45-117); ALT/SGPT 31 U/L (12-78); ANION GAP 8 MEQ/L (8-16); AST/SGOT 10 U/L (15-37); BILIRUBIN,TOTAL 0.3 MG/DL (0.2-1.0); BLOOD UREA NITROGEN 6 MG/DL (7-18); CALCIUM LEVEL 8.1 MG/DL (8.5-10.1); CARBON DIOXIDE LEVEL 25 MEQ/L (21-32); CHLORIDE LEVEL 109 MEQ/L (98-107); CREATININE FOR GFR 0.73 MG/DL (0.55-1.02); GLOMERULAR FILTRATION RATE > 60.0 (>60); GLUCOSE, FASTING 84 MG/DL (70-105); POTASSIUM SERUM 3.7 MEQ/L (3.5-5.1); SODIUM LEVEL 142 MEQ/L (136-145); TOTAL PROTEIN 6.3 GM/DL (6.4-8.2)
[2016-06-08 08:00] VITALS: BP 106/56
[2016-06-08] MEDS: CIPROFLOXACIN 400 MG in APPROPRIATE DILUENT 1 EA IV SCH ×2 (08:28→20:19)
[2016-06-08] MEDS: PANTOPRAZOLE 40MG TAB (PROTONIX) PO SCH (08:28)
[2016-06-08] MEDS: HEPARIN SOD (PORCINE) 5000 UNITS/ML VIAL SQ SCH ×2 (08:28→20:20)
--- NOTE | 2016-06-08 10:49 | IPN ---
DATE OF SERVICE: 06/08/2016 Patient reporting minimal abdominal pain. Denies any fevers, chills, chest pain, pressure or discomfort, no shortness of breath. Patient feels comfortable. Reported hungry. Denies any nausea, vomiting, diarrhea. VITAL SIGNS: Temperature 98, pulse 63, respirations 20, blood pressure 106/56, pulse oximetry 98% on room air. LABORATORY DATA: WBC 5.8, hemoglobin and hematocrit 10.8/34, platelets 265. Chemistry: Sodium 142, potassium 3.7, chloride 109, bicarbonate 25, BUN 6, creatinine 0.73. Lipase 472. PHYSICAL EXAMINATION: GENERAL: Patient alert and oriented times three, in no acute distress. HEENT: Normocephalic, atraumatic. PULMONARY: Bilaterally clear to auscultation. CARDIAC: Regular rate and rhythm. Normal S1 and S2. ABDOMEN: Minimal epigastric tenderness. No rebound or guarding. Positive bowel sounds. EXTREMITIES: No edema bilateral lower extremities. No clubbing or cyanosis. ASSESSMENT/PLAN: This is a 36-year-old female patient with underlying medical history of pancreatitis, recently discharged from the hospital, in the process of following up with general surgery, Dr. Dick, for cholecystectomy for gallstone pancreatitis. Developed worsening abdominal pain with nausea, vomiting when she advanced her diet. 1. Acute gallstone pancreatitis with also possible acute cholecystitis. General surgery, Dr. Dick, has been consulted. IV fluids. Nothing by mouth. Antibiotics Cipro and Flagyl as per Dr. Dick. EKG appreciated. Patients METS greater than 4. Currently optimized for surgery. Low risk for intermediate risk surgery. Pain medication as prescribed. 2. Deep vein thrombosis (DVT) prophylaxis. Heparin subcutaneous. DISPOSITION PLANNING: Pending surgery on Friday.
[2016-06-08 16:00] VITALS: BP 113/61
[2016-06-08 20:15] VITALS: BP 118/73
[2016-06-08] MEDS: ACETAMINOPHEN TAB 650MG DOSE (2X325MG) PO PRN (20:39)
[2016-06-09] VITALS: BP 117/71
[2016-06-09] MEDS: ONDANSETRON 4MG/2ML VIAL (J2405) IV PRN ×2 (00:46→22:42)
[2016-06-09] MEDS: NS 1,000 ML IV SCH (00:46)
[2016-06-09] MEDS: metroNIDAZOLE 500 MG in APPROPRIATE DILUENT 1 EA IV SCH ×4 (02:21→22:42)
[2016-06-09] MEDS: ACETAMINOPHEN TAB 650MG DOSE (2X325MG) PO PRN ×2 (02:23→21:44)
[2016-06-09 07:20] LABS: MEAN CORPUSCULAR HEMOGLOBIN 27.3 pg (27.0-33.0); MEAN CORPUSCULAR HGB CONC 32.5 g/dl (32.0-36.5); RED CELL DISTRIBUTION WIDTH 13.1 % (11.5-14.5); WHITE BLOOD COUNT 5.2 K/mm3 (4.0-10.0)
[2016-06-09 07:33] LABS: ALBUMIN/GLOBULIN RATIO 0.91 (1.00-1.93); ALKALINE PHOSPHATASE 107 U/L (45-117); ALT/SGPT 26 U/L (12-78); ANION GAP 7 MEQ/L (8-16); AST/SGOT 8 U/L (15-37); BILIRUBIN,TOTAL 0.2 MG/DL (0.2-1.0); BLOOD UREA NITROGEN 5 MG/DL (7-18); CARBON DIOXIDE LEVEL 27 MEQ/L (21-32); CHLORIDE LEVEL 109 MEQ/L (98-107); CREATININE FOR GFR 0.72 MG/DL (0.55-1.02); GLOMERULAR FILTRATION RATE > 60.0 (>60); GLUCOSE, FASTING 80 MG/DL (70-105); POTASSIUM SERUM 3.5 MEQ/L (3.5-5.1); SODIUM LEVEL 143 MEQ/L (136-145); TOTAL PROTEIN 6.3 GM/DL (6.4-8.2)
[2016-06-09 08:00] VITALS: BP 99/58
[2016-06-09] MEDS: CIPROFLOXACIN 400 MG in APPROPRIATE DILUENT 1 EA IV SCH ×2 (08:58→21:31)
--- NOTE | 2016-06-09 09:35 | IPN ---
DATE: 06/09/2016 Patient seen and examined. No acute events overnight. Denies any chest pain, pressure or discomfort. Reported abdominal discomfort, same as yesterday, resolving. Denies any fever or chills. VITAL SIGNS: Temperature 98.6, pulse 66, respiration 18, blood pressure 117/71, pulse oximetry 99% on room air. LABORATORY DATA: WBC 5.2, hemoglobin and hematocrit 10.6/32.6, platelets 250. Chemistry: Sodium 143, potassium 3.5, chloride 109, bicarbonate 27, BUN 5, creatinine 0.7. PHYSICAL EXAMINATION: General: Patient alert, oriented times three, in no acute distress, comfortable. HEENT: Normocephalic, atraumatic. Pulmonary: Bilateral clear to auscultation. Cardiac: Regular rate and rhythm. Normal S1, S2. Abdomen: Minimal epigastric tenderness. No rebound or guarding. Positive bowel sounds. Extremities: No edema bilateral lower extremities. ASSESSMENT AND PLAN: This is a 36-year-old female patient with underlying medical history of pancreatitis, recently discharged from the hospital, in the process of following with general surgery, Dr. Dick, for cholecystectomy, for gallstone pancreatitis, developed worsening abdominal pain, nausea, vomiting when she the diet is advanced. PROBLEMS: 1. Acute gallstone pancreatitis with acute cholecystitis. General surgery, Dr. Dick, has been consulted. Intravenous (IV) fluids. Nothing by mouth. Kam Kim as per Dr. Dick. Electrocardiogram (EKG) is appreciated. Patient's METS greater than 4. Currently optimized for surgery. Low risk for intermediate risk surgery. Pain medication as prescribed. 2. Deep vein thrombosis (DVT) prophylaxis. Heparin subcutaneous. DISPOSITION PLANNING: Surgery on Friday.
[2016-06-09] MEDS: PANTOPRAZOLE 40MG TAB (PROTONIX) PO SCH (10:13)
[2016-06-09] MEDS: HEPARIN SOD (PORCINE) 5000 UNITS/ML VIAL SQ SCH ×2 (10:13→21:43)
[2016-06-09] MEDS: KCL 20MEQ IN D5/0.45NS 1000ML 1,000 ML IV SCH (11:37)
[2016-06-09 16:00] VITALS: BP 110/69
[2016-06-09 20:00] VITALS: BP 108/62
[2016-06-10] VITALS (9 sets, daily range): BP systolic 96–139; BP diastolic 56–90
[2016-06-10] MEDS: KCL 20MEQ IN D5/0.45NS 1000ML 1,000 ML IV SCH ×3 (01:17→21:51)
[2016-06-10] MEDS: metroNIDAZOLE 500 MG in APPROPRIATE DILUENT 1 EA IV SCH ×4 (03:47→21:00)
[2016-06-10 06:55] LABS: MEAN CORPUSCULAR HEMOGLOBIN 27.3 pg (27.0-33.0); MEAN CORPUSCULAR HGB CONC 33.3 g/dl (32.0-36.5); MEAN CORPUSCULAR VOLUME 81.9 fl (80.0-96.0); RED CELL DISTRIBUTION WIDTH 12.9 % (11.5-14.5); WHITE BLOOD COUNT 4.8 K/mm3 (4.0-10.0)
[2016-06-10 07:19] LABS: ALBUMIN 3.2 GM/DL (3.2-5.2); ALBUMIN/GLOBULIN RATIO 0.91 (1.00-1.93); ALKALINE PHOSPHATASE 110 U/L (45-117); ALT/SGPT 25 U/L (12-78); ANION GAP 10 MEQ/L (8-16); AST/SGOT 16 U/L (15-37); BILIRUBIN,TOTAL 0.4 MG/DL (0.2-1.0); BLOOD UREA NITROGEN 5 MG/DL (7-18); CALCIUM LEVEL 8.3 MG/DL (8.5-10.1); CARBON DIOXIDE LEVEL 26 MEQ/L (21-32); CHLORIDE LEVEL 107 MEQ/L (98-107); GLOMERULAR FILTRATION RATE > 60.0 (>60); GLUCOSE, FASTING 103 MG/DL (70-105); MAGNESIUM LEVEL 1.8 MG/DL (1.8-2.4); POTASSIUM SERUM 3.4 MEQ/L (3.5-5.1); SODIUM LEVEL 143 MEQ/L (136-145); TOTAL PROTEIN 6.7 GM/DL (6.4-8.2)
[2016-06-10] MEDS: CIPROFLOXACIN 400 MG in APPROPRIATE DILUENT 1 EA IV SCH ×2 (07:50→21:51)
[2016-06-10] MEDS: HEPARIN SOD (PORCINE) 5000 UNITS/ML VIAL SQ SCH ×2 (09:00→20:44)
[2016-06-10] MEDS: PANTOPRAZOLE 40MG TAB (PROTONIX) PO SCH (09:09)
[2016-06-10 15:53] LABS: CONTROL LINE UCG INT CTR LINE PRESENT
[2016-06-10] MEDS ORDERED: metroNIDAZOLE/NACL 500MG(5MG/ML)100 ML BAG (S0030) As Ordered ONE (16:38)
[2016-06-10] MEDS ORDERED: BUPIVACAINE/EPIN 0.25% 30 ML VIAL As Ordered ONE (16:39)
[2016-06-10] MEDS ORDERED: MIDAZOLAM INJ 2 MG/2 ML VIAL (J2250) As Ordered ONE (17:27)
[2016-06-10] MEDS ORDERED: HYDROmorphone HCL 2 MG/ML 1ML VIAL (J1170) As Ordered ONE (17:27)
[2016-06-10] MEDS ORDERED: fentaNYL 250 MCG/5 ML INJECTION (J3010) As Ordered ONE (17:27)
[2016-06-10] MEDS ORDERED: ESMOLOL INJ 100MG/10ML VIAL As Ordered ONE ×2 (17:30→17:49)
[2016-06-10] MEDS ORDERED: PROPOFOL 200 MG/20 ML VIAL As Ordered ONE (17:32)
[2016-06-10] MEDS ORDERED: NEOSTIGMINE 1MG/ML 5 ML SYRINGE (J2710) As Ordered ONE (17:32)
[2016-06-10] MEDS ORDERED: ROCURONIUM BROMIDE 50 MG/5 ML VIAL As Ordered ONE (17:32)
[2016-06-10] MEDS ORDERED: LIDOCAINE 2% INJ 100 MG/5 ML SDV (FOR ANES.) As Ordered ONE (17:32)
[2016-06-10] MEDS ORDERED: ONDANSETRON 4MG/2ML VIAL (J2405) As Ordered ONE ×2 (17:32→18:24)
[2016-06-10] MEDS ORDERED: METOCLOPRAMIDE INJ 10MG/2ML VIAL (J2765) As Ordered ONE (17:32)
[2016-06-10] MEDS ORDERED: GLYCOPYRROLATE INJ 0.2 MG/ML 2 ML VIAL As Ordered ONE (17:33)
[2016-06-10] MEDS ORDERED: ONDANSETRON 4MG/2ML VIAL (J2405) IV PRN (18:30)
[2016-06-10] MEDS ORDERED: fentaNYL 100 MCG/2 ML INJECTION (J3010) IV PRN (18:30)
[2016-06-10] MEDS ORDERED: PERCOCET 5MG/325MG TAB PO PRN (18:30)
[2016-06-10] MEDS ORDERED: LR 1,000 ML IV SCH (18:30)
--- NOTE | 2016-06-10 18:32 | IPNPDOC ---
Subjective Date Seen The patient was seen on 06/10/16. Subjective Chief Complaint/HPI The patient is a 36-year-old female admitted with a reason for visit of Acute Pancreatitis. Constitutional: Denies: Chills, Fever, Night Sweats Pulmonary: Denies: Cough, Dyspnea Cardiovascular: Denies: Chest Pain, Lt Headedness, Orthopnea, Palpitations, Paroxysmal Noc. Dyspnea Objective Physical Examination General Exam: Positive: Alert, Cooperative, No Acute Distress Eye Exam: Positive: Conjunctiva & lids normal, EOMI, PERRLA, Negative: Sclera icteric ENT Exam: Positive: Atraumatic, Mucous membr. moist/pink, Nares Patent, Pharynx Normal, Tongue Midline Neck Exam: Positive: Other (trachea midline), Supple, Negative: JVD, Lymphadenopathy, thyromegaly Chest Exam: Positive: Clear to auscultation, Normal air movement, Other (good airway excursion) Heart Exam: Positive: Normal S1, Normal S2, Rate Normal, Regular Rhythm, Negative: Murmurs, Rubs Abdomen Exam: Positive: Normal bowel sounds, Other, Soft, Negative: Hepatospenomegaly, Tenderness Extremity Exam: Positive: Normal pulses, Negative: Clubbing, Cyanosis, Edema, Swelling, Tenderness Skin Exam: Positive: Nl turgor and temperature, Other skin issue (dry skin noted on upper and lower extremities bilaterally) Neuro Exam: Positive: Cranial Nerves 3-12 NL, Normal Speech Assessment /Plan Problems (1) Acute pancreatitis Status: Acute Problem Text: Nothing by mouth Abdominal, right upper quadrant ultrasound Pain medications: Percocet, morphine, Tylenol Zofran General surgery consult Plan/VTE VTE Prophylaxis Ordered?: Yes (TEDs and sequentials) Plan IVF: Initiate (250 mls/hr) Diet: Make NPO Activity: Bedrest (with commode privilege) Diagnostics: Check Labs, Repeat Labs in AM, Ultrasound (right upper quadrant, abdomen) Anticipated Discharge: Home VS, I&O, 24H, [facility] Vital Signs/I&O Vital Signs Date Time Temp Pulse Resp B/P Pulse Ox O2 Delivery O2 Flow Rate FiO2 06/10/16 18:27 97.8 67 16 110/55 99 Room Air 06/10/16 18:12 3 I&O- Last 24 Hours up to 6 AM 06/10/16 06:00 Intake Total 3100 ml Output Total 2350 ml Balance 750 ml Laboratory Data 24H LABS Laboratory Tests 2 06/10/16 06:44: Blood Urea Nitrogen 5L, Creatinine 0.70, Sodium Level 143, Potassium Level 3.4L , Chloride Level 107, Carbon Dioxide Level 26, Calcium Level 8.3L, Aspartate Amino Transf (AST/SGOT) 16, Alanine Aminotransferase (ALT/SGPT) 25, Alkaline Phosphatase 110, Total Bilirubin 0.4#, Total Protein 6.7, Albumin 3.2, Albumin/ Globulin Ratio 0.91L, Anion Gap 10, Glomerular Filtration Rate > 60.0, Magnesium Level 1.8 06/10/16 15:00: Urine Test NEGATIVE CBC/BMP Laboratory Tests 06/10/16 06:44 Calcium Level 8.3 L, Aspartate Amino Transf (AST/SGOT) 16, Alanine Aminotransferase (ALT/SGPT) 25, Alkaline Phosphatase 110, Total Bilirubin 0.4 # , Total Protein 6.7, Albumin 3.2, Red Blood Count 4.19, Mean Corpuscular Volume 81.9, Mean Corpuscular Hemoglobin 27.3, Mean Corpuscular Hemoglobin Concent 33.3 , Red Cell Distribution Width 12.9 SHYAM GUPTA DO Jun 10, 2016 18:32
[2016-06-10] MEDS: ONDANSETRON 4MG/2ML VIAL (J2405) IV PRN (18:37)
[2016-06-10] MEDS ORDERED: HYDROmorphone HCL 1 MG/ML SYRINGE (J1170) As Ordered ONE (18:38)
[2016-06-10] MEDS: HYDROmorphone HCL 1 MG/ML SYRINGE (J1170) IV PRN ×3 (18:42→19:07)
[2016-06-10] MEDS: PERCOCET 5MG/325MG TAB PO PRN (22:00)
--- NOTE | 2016-06-10 23:22 | RO ---
DATE OF PROCEDURE: 06/10/2016 PREOPERATIVE DIAGNOSES: Gallstone pancreatitis with reducible umbilical hernia. POSTOPERATIVE DIAGNOSES: Gallstone pancreatitis with reducible umbilical hernia. PROCEDURE: Laparoscopic cholecystectomy with umbilical hernia repair. SURGEON: Gustavo Dick DO INSTRUCTOR TECHNICAL TRAINING: None. ANESTHESIA: General. ESTIMATED BLOOD LOSS: 5 mL. COMPLICATIONS: None. INDICATIONS FOR PROCEDURE: The patient is a 36-year-old female said to have a hospital admission for gallstone pancreatitis. Recommendation is to proceed with laparoscopic, possible open cholecystectomy. Risks and benefits of the procedure not limited but including bleeding, infection, hernia formation, damage to surrounding structures, need for further surgery were discussed in detail with the patient. Informed was obtained and the procedure was planned. DESCRIPTION OF PROCEDURE: The patient brought back to operating room 7. After sufficient sedation, the abdomen was sterilely prepped and draped. Next, a time-out was done to conform proper patient and proper procedure. Following that a stab incision made in the left lower quadrant at Law's point. Veress needle was inserted and the abdomen was insufflated to 50 mmHg. Next, a 5 mm umbilical incision was made using a 5 mm Optiview port. The port was placed through a 5 mm umbilical hernia that was present and into the abdomen under direct visualization. Next, the Veress needle site was examined. No signs of injury. Gallbladder was grasped, elevated up towards the right shoulder. Cystic duct and cystic artery were both then clearly and easily identified. They were both dissected free with blunt dissection and both doubly clipped and cut. Gallbladder was then removed from the gallbladder fossa using electrocautery, brought out through the subxiphoid port site in a 10 mm EndoCatch bag. Right upper quadrant was then irrigated. Electrocautery was used to control hemostasis of the liver bed. Once this was completed, the umbilical port site was removed. A Khadar-Smith needle and an #0 Vicryl suture was then used to close the fascia at the umbilical port site where she had a previous umbilical hernia. Once this was completed, the abdomen was desufflated. Skin incision closed with #4-0 Vicryl subcuticular sutures. The abdomen was cleaned and dried. Steri-Strips, 4x4, and tape were applied thus ending the procedure.
[2016-06-11 00:30] VITALS: BP 131/69
[2016-06-11] MEDS: KCL 20MEQ IN D5/0.45NS 1000ML 1,000 ML IV SCH ×3 (00:45→19:57)
[2016-06-11] MEDS: ONDANSETRON 4MG/2ML VIAL (J2405) IV PRN (00:51)
[2016-06-11] MEDS: ACETAMINOPHEN TAB 650MG DOSE (2X325MG) PO PRN (00:52)
[2016-06-11] MEDS: metroNIDAZOLE 500 MG in APPROPRIATE DILUENT 1 EA IV SCH ×4 (03:10→21:00)
[2016-06-11 04:00] VITALS: BP 110/61
[2016-06-11 07:12] LABS: MEAN CORPUSCULAR HEMOGLOBIN 27.3 pg (27.0-33.0); MEAN CORPUSCULAR HGB CONC 33.3 g/dl (32.0-36.5); MEAN CORPUSCULAR VOLUME 81.9 fl (80.0-96.0); RED CELL DISTRIBUTION WIDTH 13.2 % (11.5-14.5); WHITE BLOOD COUNT 7.4 K/mm3 (4.0-10.0)
[2016-06-11 07:28] LABS: ALBUMIN 3.3 GM/DL (3.2-5.2); ALBUMIN/GLOBULIN RATIO 0.97 (1.00-1.93); ALKALINE PHOSPHATASE 101 U/L (45-117); ALT/SGPT 39 U/L (12-78); ANION GAP 4 MEQ/L (8-16); AST/SGOT 41 U/L (15-37); BILIRUBIN,TOTAL 0.2 MG/DL (0.2-1.0); BLOOD UREA NITROGEN 2 MG/DL (7-18); CALCIUM LEVEL 8.7 MG/DL (8.5-10.1); CARBON DIOXIDE LEVEL 30 MEQ/L (21-32); CHLORIDE LEVEL 108 MEQ/L (98-107); CREATININE FOR GFR 0.67 MG/DL (0.55-1.02); GLOMERULAR FILTRATION RATE > 60.0 (>60); GLUCOSE, FASTING 118 MG/DL (70-105); POTASSIUM SERUM 3.7 MEQ/L (3.5-5.1); SODIUM LEVEL 142 MEQ/L (136-145); TOTAL PROTEIN 6.7 GM/DL (6.4-8.2)
[2016-06-11] MEDS: CIPROFLOXACIN 400 MG in APPROPRIATE DILUENT 1 EA IV SCH ×2 (07:43→19:58)
[2016-06-11 08:20] VITALS: BP 108/55
[2016-06-11] MEDS: PANTOPRAZOLE 40MG TAB (PROTONIX) PO SCH (08:37)
[2016-06-11] MEDS: HEPARIN SOD (PORCINE) 5000 UNITS/ML VIAL SQ SCH ×2 (08:38→19:58)
[2016-06-11] MEDS ORDERED: SENN1TAB2 PO (08:44)
[2016-06-11] MEDS ORDERED: PERCOCET PO (08:44)
[2016-06-11] MEDS: PERCOCET 5MG/325MG TAB PO PRN (09:37)
--- NOTE | 2016-06-11 11:54 | IPNPDOC ---
Subjective Date Seen The patient was seen on 06/11/16. Subjective Chief Complaint/HPI The patient is a 36-year-old female admitted with a reason for visit of Acute Pancreatitis. Events since last encounter has some badominal pain from the stitches , no fever or chills, says still not very hungry but will try to eat something . no chest pain or cough , no sob. Objective Physical Examination General Exam: Positive: Alert, Cooperative, No Acute Distress Eye Exam: Positive: Conjunctiva & lids normal, EOMI, PERRLA, Negative: Sclera icteric ENT Exam: Positive: Atraumatic, Mucous membr. moist/pink, Nares Patent, Pharynx Normal, Tongue Midline Neck Exam: Positive: Other (trachea midline), Supple, Negative: JVD, Lymphadenopathy, thyromegaly Chest Exam: Positive: Clear to auscultation, Normal air movement, Other (good airway excursion) Heart Exam: Positive: Normal S1, Normal S2, Rate Normal, Regular Rhythm, Negative: Murmurs, Rubs Abdomen Exam: Positive: Normal bowel sounds, Other, Soft, Negative: Hepatospenomegaly, Tenderness Extremity Exam: Positive: Normal pulses, Negative: Clubbing, Cyanosis, Edema, Swelling, Tenderness Skin Exam: Positive: Nl turgor and temperature, Other skin issue (dry skin noted on upper and lower extremities bilaterally) Neuro Exam: Positive: Cranial Nerves 3-12 NL, Normal Speech Assessment /Plan Problems (1) Acute pancreatitis Status: Acute Problem Text: Gall stone pancreatitis. S/P lap cholecystectomy on 06/11/[address] Dick. advance diet as per surgical recommendation. (2) Cholecystitis Status: Acute Problem Text: [place] ambrocioro and flagyl s/p cholecystectomy on 06/10/16 Plan/VTE VTE Prophylaxis Ordered?: Yes (TEDs and sequentials) Plan IVF: Initiate (250 mls/hr) Diet: Make NPO Activity: Bedrest (with commode privilege) Diagnostics: Check Labs, Repeat Labs in AM, Ultrasound (right upper quadrant, abdomen) Anticipated Discharge: Home VS, I&O, 24H, Fishbone Vital Signs/I&O Vital Signs Date Time Temp Pulse Resp B/P Pulse Ox O2 Delivery O2 Flow Rate FiO2 06/11/16 10:25 18 06/11/16 08:20 99.2 103 108/55 98 Room Air 3/20/17 18:12 3 I&O- Last 24 Hours up to 6 AM 06/11/16 06:00 Intake Total 5564 ml Output Total 2360 ml Balance 3204 ml Laboratory Data 24H LABS Laboratory Tests 2 06/10/16 15:00: Urine Test NEGATIVE 06/11/16 06:40: Blood Urea Nitrogen 2#L, Creatinine 0.67, Sodium Level 142, Potassium Level 3.7 , Chloride Level 108H, Carbon Dioxide Level 30, Calcium Level 8.7, Aspartate Amino Transf (AST/SGOT) 41H, Alanine Aminotransferase (ALT/SGPT) 39, Alkaline Phosphatase 101, Total Bilirubin 0.2, Total Protein 6.7, Albumin 3.3, Albumin/ Globulin Ratio 0.97L, Anion Gap 4L, Glomerular Filtration Rate > 60.0, Magnesium Level 2.0 CBC/BMP Laboratory Tests 06/11/16 06:40 Calcium Level 8.7, Aspartate Amino Transf (AST/SGOT) 41 H, Alanine Aminotransferase (ALT/SGPT) 39, Alkaline Phosphatase 101, Total Bilirubin 0.2, Total Protein 6.7, Albumin 3.3, Red Blood Count 4.17, Mean Corpuscular Volume 81.9, Mean Corpuscular Hemoglobin 27.3, Mean Corpuscular Hemoglobin Concent 33.3 , Red Cell Distribution Width 13.2 DOUG LOO MD Jun 11, 2016 11:54
[2016-06-11 12:00] VITALS: BP 142/82
[2016-06-11 16:00] VITALS: BP 123/62
[2016-06-11 20:00] VITALS: BP 125/69
[2016-06-12] VITALS: BP 104/57
[2016-06-12] MEDS: metroNIDAZOLE 500 MG in APPROPRIATE DILUENT 1 EA IV SCH ×2 (03:32→10:13)
[2016-06-12] MEDS ORDERED: PANT40TA2 PO (06:11)
[2016-06-12] MEDS ORDERED: CIPR500T89 PO (06:11)
[2016-06-12] MEDS ORDERED: FLAG500T PO (06:11)
[2016-06-12] MEDS ORDERED: ONDA4TAB6 PO (06:11)
[2016-06-12 06:47] LABS: MEAN CORPUSCULAR HEMOGLOBIN 27.2 pg (27.0-33.0); MEAN CORPUSCULAR HGB CONC 32.7 g/dl (32.0-36.5); MEAN CORPUSCULAR VOLUME 83.3 fl (80.0-96.0); RED CELL DISTRIBUTION WIDTH 13.4 % (11.5-14.5)
[2016-06-12 07:09] LABS: ALBUMIN 3.3 GM/DL (3.2-5.2); ALBUMIN/GLOBULIN RATIO 0.94 (1.00-1.93); ALKALINE PHOSPHATASE 93 U/L (45-117); ALT/SGPT 47 U/L (12-78); ANION GAP 5 MEQ/L (8-16); AST/SGOT 51 U/L (15-37); BILIRUBIN,TOTAL 0.1 MG/DL (0.2-1.0); BLOOD UREA NITROGEN 4 MG/DL (7-18); CALCIUM LEVEL 8.6 MG/DL (8.5-10.1); CARBON DIOXIDE LEVEL 29 MEQ/L (21-32); CHLORIDE LEVEL 109 MEQ/L (98-107); CREATININE FOR GFR 0.74 MG/DL (0.55-1.02); GLOMERULAR FILTRATION RATE > 60.0 (>60); GLUCOSE, FASTING 110 MG/DL (70-105); MAGNESIUM LEVEL 1.9 MG/DL (1.8-2.4); POTASSIUM SERUM 3.5 MEQ/L (3.5-5.1); SODIUM LEVEL 143 MEQ/L (136-145); TOTAL PROTEIN 6.8 GM/DL (6.4-8.2)
[2016-06-12 08:00] VITALS: BP 142/76
[2016-06-12] MEDS: PANTOPRAZOLE 40MG TAB (PROTONIX) PO SCH (08:34)
[2016-06-12] MEDS: HEPARIN SOD (PORCINE) 5000 UNITS/ML VIAL SQ SCH (08:34)
[2016-06-12] MEDS: CIPROFLOXACIN 400 MG in APPROPRIATE DILUENT 1 EA IV SCH (08:34)
--- NOTE | 2016-06-12 12:00 | DSES ---
DATE OF ADMISSION: 06/06/2016 DATE OF DISCHARGE: PRIMARY CARE PROVIDER: New primary care provider has been provided. SURGEON: Dr. Dick DISCHARGE DIAGNOSES: Acute Gall stone pancreatitis. Acute cholecystitis status post laparoscopic cholecystectomy on 06/10/2016. Umbilical hernia repair. DISCHARGE MEDICATIONS: - ciprofloxacin 500 mg by mouth twice daily - metronidazole 500 mg by mouth every 8 hours - pantoprazole 40 mg by mouth daily - Senna plus one tablet by mouth twice daily - Percocet 5/325 one tablet every 4 hours as needed pain - ondansetron 4 mg by mouth three times daily as needed nausea HOSPITAL COURSE: This is a 36-year-old female with no past medical history who was originally admitted on 05/28/2016 for acute pancreatitis from gallstones and discharged on 05/30/2016 with plan to followup with surgeon Dr. Dick in 1 week for scheduling for cholecystectomy. However, after being seen in the office by Dr. Dick on 06/06, she went and had some pizzas and burgers and started having recurrence of abdominal pain, nausea, vomiting and back pain, and also one episode of diarrhea, so she came back to the emergency room, found to have recurrence of acute pancreatitis due to gallstones as well as possibly acute cholecystitis. Patient was started on ciprofloxacin, metronidazole as well as pain mediations, IV fluids. Patient responded well to treatment. Patient subsequently underwent laparoscopic cholecystectomy on 06/10/2016. That procedure was uneventful. Patient also at the same time had an umbilical hernia repair. At present, patient's vitals are stable. Patient functionally at baseline and appeared to tolerate regular oral diet. Patient is going to be discharged home. PHYSICAL EXAMINATION: Vital signs: Temperature 99.4, pulse 67, respiratory rate 20, blood pressure 104/57, pulse oximetry 94% on room air. General: Patient awake, alert, oriented times three, lying down in bed in no acute distress. HEENT: Normocephalic, atraumatic. Moist mucous membranes. Anicteric eyes. Chest: Clear to auscultation. Cardiovascular: S1, S2. Regular. No rub, murmur or gallop. Abdomen: Soft, mildly tender in the surgical site. Bowel sounds present. Extremities: No edema. LABORATORY DATA: WBC 7, hemoglobin 11.8, platelets 263. Sodium 143, potassium 3.5, chloride 109, bicarbonate 29, BUN 4, creatinine 0.7, glucose 110. Liver function tests normal. Lipase on 06/08 was 472. DISPOSITION: Patient is discharged home in stable condition. DISCHARGE INSTRUCTIONS: Patient to followup with new primary care provider in 1 month. Patient to followup with Dr. Dick in 1 week. Regular diet, however, advised to take low fat diet. Activity as tolerated. MTDD
== END 2016-06-12 11:50 | disposition home or self-care (01) | DRG 263 ==
LOC: M ED 22:08 → M ED INP 23:44 → M PED 06-07 01:30
PROVIDERS: ADMIT Internal Medicine; ATTEND Internal Medicine Nephrology
PROC: 0WQF3ZZ Repair Abdominal Wall, Percutaneous Approach (ICD-10-PCS; 2016-06-10)
PROC: 0FT44ZZ Resection of Gallbladder, Percutaneous Endoscopic Approach (ICD-10-PCS; principal; 2016-06-10 16:30)
DX: K85.10 Biliary acute pancreatitis without necrosis or infection (principal); K81.0 Acute cholecystitis; K42.9 Umbilical hernia without obstruction or gangrene; Z79.899 Other long term (current) drug therapy

== ENCOUNTER 2016-11-02 19:31 | Emergency (ER) | payer MEDICAID ==
[~2016-11-02] VITALS: Ht 180.3 cm; Wt 81.8 kg
[~2016-11-02 19:31] MED LIST changes: +CIPR-249 PO; -COLA100C3 PO; +COLA100C5 PO; +FLAG500T PO; -IBUP200C PO; +IBUP200C10 PO; -MACR100C3 PO; +MACR100C43 PO; +ONDA4TAB6 PO; +PANT40TA2 PO; +PERCOCET PO; +SENN1TAB2 PO
[2016-11-02 19:32] VITALS: BP 120/75
[2016-11-02] MEDS ORDERED: BENZONATATE 100 MG CAP PO ONE (20:15)
[2016-11-02] MEDS ORDERED: TESS100C PO (20:19)
== END 2016-11-02 20:26 | disposition home or self-care (01) ==
LOC: M ED 19:31
DX: J06.9 Acute upper respiratory infection, unspecified (principal); B34.9 Viral infection, unspecified

== ENCOUNTER 2017-01-02 21:42 | Emergency (ER) | payer MEDICAID, OTHER ==
[~2017-01-02] VITALS: Ht 180.3 cm; Wt 72.7 kg
[~2017-01-02 21:42] MED LIST changes: +TESS100C PO
--- NOTE | 2017-01-03 01:40 | REPUSA ---
CLINICAL HISTORY: Neck pain. TECHNIQUE: Multiple axial images were obtained through the cervical spine. Images were also reconstru cted in coronal and sagittal planes. The study was performed without IV contrast. COMMENTS: There is no fracture or spondylolisthesis visualized. The paraspinal soft tissues are unremarkable. T here are no lytic or blastic lesions. Straightening of cervical lordosis is seen, suggesting muscular spasm. There is evidence of minimal m ultilevel disk disease, demonstrated by minimal osteophytosis and endplate sclerosis. No significant disk herniation is noted at any level. Canal and foramina remain patent. IMPRESSION: 1. No fracture or spondylolisthesis. 2. Straightening of cervical lordosis is seen, suggesting muscular spasm. 3. Minimal multilevel spondylosis. Thank you for your kind referral of this patient.
[2017-01-03 01:45] VITALS: BP 104/62
== END 2017-01-03 02:01 | disposition home or self-care (01) ==
LOC: M ED 21:42
DX: Z04.1 Encounter for examination and observation following transport accident (principal); T14.8XXA Other injury of unspecified body region, initial encounter; S13.4XXA Sprain of ligaments of cervical spine, initial encounter; V09.20XA Pedestrian injured in traffic accident involving unspecified motor vehicles, initial encounter; Y92.410 Unspecified street and highway as the place of occurrence of the external cause; Y93.89 Activity, other specified; Y99.8 Other external cause status

== ENCOUNTER 2021-06-09 09:55 | Emergency (ER) | payer MEDICAID, OTHER ==
[~2021-06-09] VITALS: Ht 180.3 cm; Wt 102.5 kg
[2021-06-09 09:55] VITALS: BP 120/71
[~2021-06-09 09:55] MED LIST changes: -ACET50TA PO; -IBUP200C10 PO; +IBUP200C25 PO; +MAPA500T2 PO; -PANT40TA2 PO; +PANT40TA29 PO; +SENN-53 PO; -SENN1TAB2 PO
[2021-06-09] MEDS ORDERED: BOOSTRIX/ADACEL VACCINE (DIPHTH/PERTUSS/ACELL/TETANUS) 0.5ML SYR IM ONE (10:05)
[2021-06-09] MEDS ORDERED: BACT800T5 PO (10:15)
== END 2021-06-09 10:32 | disposition home or self-care (01) ==
LOC: M ED 09:55
DX: S91.332A Puncture wound without foreign body, left foot, initial encounter (principal); W45.0XXA Nail entering through skin, initial encounter; Y92.009 Unspecified place in unspecified non-institutional (private) residence as the place of occurrence of the external cause; Y93.9 Activity, unspecified; Y99.9 Unspecified external cause status; Z23 Encounter for immunization

== ENCOUNTER 2021-11-30 18:18 | Inpatient (IN) | payer MEDICAID, OTHER ==
[~2021-11-30] VITALS: Ht 172.7 cm; Wt 103.3 kg
[~2021-11-30 18:18] MED LIST changes: +BACT800T5 PO
[2021-11-30] MEDS ORDERED: LORazepam 2 MG/ML VIAL IV STA (20:43)
[2021-11-30] MEDS ORDERED: NS 1,000 ML IV ONE (20:45)
[2021-11-30 20:55] LABS: BASO # 0.1 10^3/uL (0.0-0.2); BASO % 0.4 % (0.0-1.0); EOS # 0.1 10^3/uL (0.0-0.5); EOS % 0.4 % (0.0-3.0); HEMATOCRIT 39.8 % (36.0-47.0); HEMOGLOBIN 12.2 g/dl (12.0-15.5); LYMPH # 3.2 10^3/uL (1.5-5.0); LYMPH % 20.2 % (24.0-44.0); MEAN CORPUSCULAR HEMOGLOBIN 28.4 pg (27.0-33.0); MEAN CORPUSCULAR HGB CONC 30.7 g/dl (32.0-36.5); MEAN CORPUSCULAR VOLUME 92.6 fl (80.0-96.0); MONO # 0.9 10^3/uL (0.0-0.8); MONO % 5.8 % (2.0-8.0); NEUTROPHILS # 11.5 10^3/uL (1.5-8.5); NEUTROPHILS % 72.6 % (36.0-66.0); PLATELET COUNT, AUTOMATED 304 10^3/uL (150-450); WHITE BLOOD COUNT 15.8 10^3/uL (4.0-10.0)
[2021-11-30 21:15] LABS: CK-MB VALUE MASS 7.6 NG/ML (<3.6); MB/CK RELATIVE INDEX 0.9 (< OR =4)
[2021-11-30 21:16] LABS: APPEARANCE, URINE MANUAL CLEAR (CLEAR); COLOR, URINE MANUAL YELLOW (YELLOW)
[2021-11-30 21:18] LABS: BILIRUBIN, URINE MANUAL NEGATIVE (NEGATIVE); BLOOD URINE MANUAL POSITIVE (NEGATIVE); GLUCOSE, URINE (UA) MANUAL NEGATIVE (NEGATIVE); KETONE, URINE MANUAL 3+ mg/dL (NEGATIVE); LEUKOCYTE ESTERASE, URINE MAN NEGATIVE (NEGATIVE); NITRITE, URINE MANUAL NEGATIVE (NEGATIVE); PROTEIN, URINE MANUAL 1+ mg/dL (NEGATIVE); UROBILINOGEN, URINE MANUAL NORMAL (NORMAL)
[2021-11-30 21:28] LABS: RBC, URINE 0-1 /hpf (0-3); WBC, URINE 0-1 /hpf (0-3)
[2021-11-30 21:29] LABS: BACTERIA, URINE SMALL AMOUNT; HYALINE CAST, URINE NONE SEEN /lpf (0-1); MUCUS, URINE SMALL AMOUNT (NEGATIVE); SQUAMOUS EPITHELIAL CELL URINE SMALL AMOUNT /hpf (SMALL AMT)
[2021-11-30] MEDS ORDERED: SODIUM BICARBONATE 150 MEQ in D5W 1,000 ML IV SCH (21:35)
[2021-11-30 21:36] LABS: AMPHETAMINES LEVEL URINE NEGATIVE (NEGATIVE); BARBITURATES URINE NEGATIVE (NEGATIVE); BENZODIAZEPINES URINE NEGATIVE (NEGATIVE); CANNABINOIDS URINE POSITIVE (NEGATIVE); COCAINE METABOLITE URINE NEGATIVE (NEGATIVE); METHADONE URINE NEGATIVE (NEGATIVE); OPIATES URINE NEGATIVE (NEGATIVE); PHENCYCLIDINE URINE NEGATIVE (NEGATIVE)
[2021-11-30 21:36] LABS: ACETAMINOPHEN LEVEL < 2.0 UG/ML (10.0-30.0); ALT/SGPT 89 U/L (12-78); BILIRUBIN,TOTAL 1.3 MG/DL (0.2-1.0); BLOOD UREA NITROGEN 7 MG/DL (7-18); CALCIUM LEVEL 8.8 MG/DL (8.5-10.1); CARBON DIOXIDE LEVEL 14 MEQ/L (21-32); CHLORIDE LEVEL 90 MEQ/L (98-107); CREATININE FOR GFR 0.84 MG/DL (0.55-1.30); GLOMERULAR FILTRATION RATE > 60.0 (>60); GLUCOSE, FASTING 145 MG/DL (70-100); MAGNESIUM LEVEL 1.9 MG/DL (1.8-2.4); POTASSIUM SERUM 3.4 MEQ/L (3.5-5.1); SALICYLATE LEVEL < 1.7 MG/DL (5.0-30.0); SODIUM LEVEL 126 MEQ/L (136-145); TOTAL PROTEIN 7.7 GM/DL (6.4-8.2)
[2021-11-30] MEDS ORDERED: ISOVUE-370 76% 100ML VIAL As Ordered ONE (21:46)
[2021-11-30] MEDS ORDERED: KCL 10MEQ/100ML SWI (KRUN) 10 MEQ in IV 1 EA IV ONE (22:00)
[2021-11-30] MEDS: MIDAZOLAM INJ 2MG/2ML VIAL (J2250 PER 1MG) IV STA ×2 (22:13→22:23)
[2021-11-30] MEDS ORDERED: MIDAZOLAM INJ 2MG/2ML VIAL (J2250 PER 1MG) IV STA (22:46)
[2021-11-30 23:35] LABS: RSV AMPLIFICATION NEGATIVE (NEGATIVE)
[2021-12-01] VITALS (43 sets, daily range): BP systolic 102–169; BP diastolic 55–92
[2021-12-01] MEDS ORDERED: ZOLO100T PO (00:51)
[2021-12-01] MEDS ORDERED: HOME MED LIST COMPLETE! XX SCH (00:55)
[2021-12-01] MEDS ORDERED: ETOMIDATE INJ 20MG/10ML VIAL IV STA (01:07)
[2021-12-01] MEDS ORDERED: ROCURONIUM BROMIDE 50 MG/5 ML VIAL IV SCH (01:10)
[2021-12-01] MEDS ORDERED: NS 1,000 ML IV ONE (01:15)
[2021-12-01] MEDS ORDERED: MIDAZOLAM DRIP LOCK BOX KEY 1 EACH EA XX PRN (01:25)
[2021-12-01] MEDS ORDERED: propofoL 1,000 MG in IV 1 EA IV SCH (01:25)
[2021-12-01] MEDS ORDERED: MIDAZOLAM HCL 100 MG in IV 1 EA IV SCH (01:25)
[2021-12-01] MEDS ORDERED: metroNIDAZOLE 500 MG in IV 1 EA IV SCH (02:00)
[2021-12-01] MEDS ORDERED: MIDAZOLAM INJ 2MG/2ML VIAL (J2250 PER 1MG) IV STA ×2 (02:04→02:26)
[2021-12-01 02:28] LABS: ETHYL ALCOHOL (ETHANOL) < 0.003 % (0.000-0.010)
[2021-12-01] MEDS: propofoL 1,000 MG in IV 1 EA IV SCH ×6 (02:59→14:02)
[2021-12-01] MEDS ORDERED: CIPROFLOXACIN 400 MG in IV 1 EA IV SCH (03:00)
[2021-12-01 03:01] LABS: OSMOLALITY URINE 419 MOSM/KG (50-1400)
[2021-12-01 03:08] LABS: SODIUM,RANDOM URINE 83 MEQ/L
[2021-12-01] MEDS: metroNIDAZOLE 500 MG in IV 1 EA IV SCH ×2 (03:16→09:33)
[2021-12-01 03:19] LABS: ALBUMIN 3.4 GM/DL (3.2-5.2); ALT/SGPT 74 U/L (12-78); BLOOD UREA NITROGEN 5 MG/DL (7-18); CALCIUM LEVEL 7.7 MG/DL (8.5-10.1); CARBON DIOXIDE LEVEL 24 MEQ/L (21-32); CHLORIDE LEVEL 90 MEQ/L (98-107); CREATININE FOR GFR 0.45 MG/DL (0.55-1.30); GLOMERULAR FILTRATION RATE > 60.0 (>60); GLUCOSE, FASTING 108 MG/DL (70-100); MAGNESIUM LEVEL 1.8 MG/DL (1.8-2.4); PHOSPHORUS LEVEL 3.2 MG/DL (2.5-4.9); POTASSIUM SERUM 3.7 MEQ/L (3.5-5.1); SODIUM LEVEL 123 MEQ/L (136-145); TOTAL PROTEIN 6.4 GM/DL (6.4-8.2)
[2021-12-01] MEDS: NS 1,000 ML IV SCH ×2 (04:08→08:22)
[2021-12-01] MEDS: HEPARIN SOD (PORCINE) 5000UNITS/ML 1ML VIAL/SYRINGE SC SCH ×3 (05:04→22:00)
[2021-12-01] MEDS: MIDAZOLAM INJ 2MG/2ML VIAL (J2250 PER 1MG) IV PRN ×2 (05:04→07:34)
[2021-12-01 05:51] LABS: BASO % 0.1 % (0.0-1.0); EOS # 0.1 10^3/uL (0.0-0.5); EOS % 0.4 % (0.0-3.0); HEMATOCRIT 35.9 % (36.0-47.0); HEMOGLOBIN 12.1 g/dl (12.0-15.5); LYMPH # 1.3 10^3/uL (1.5-5.0); LYMPH % 9.6 % (24.0-44.0); MEAN CORPUSCULAR HEMOGLOBIN 28.5 pg (27.0-33.0); MEAN CORPUSCULAR HGB CONC 33.7 g/dl (32.0-36.5); MEAN CORPUSCULAR VOLUME 84.7 fl (80.0-96.0); MONO # 0.9 10^3/uL (0.0-0.8); MONO % 6.6 % (2.0-8.0); NEUTROPHILS # 11.6 10^3/uL (1.5-8.5); NEUTROPHILS % 82.9 % (36.0-66.0); PLATELET COUNT, AUTOMATED 258 10^3/uL (150-450); RED BLOOD COUNT 4.24 10^6/uL (4.00-5.40)
[2021-12-01 06:27] LABS: ALBUMIN 3.4 GM/DL (3.2-5.2); ALT/SGPT 73 U/L (12-78); BLOOD UREA NITROGEN 5 MG/DL (7-18); CALCIUM LEVEL 8.1 MG/DL (8.5-10.1); CARBON DIOXIDE LEVEL 24 MEQ/L (21-32); CHLORIDE LEVEL 95 MEQ/L (98-107); CREATININE FOR GFR 0.51 MG/DL (0.55-1.30); GLOMERULAR FILTRATION RATE > 60.0 (>60); GLUCOSE, FASTING 108 MG/DL (70-100); MAGNESIUM LEVEL 2.1 MG/DL (1.8-2.4); PHOSPHORUS LEVEL 3.5 MG/DL (2.5-4.9); SODIUM LEVEL 126 MEQ/L (136-145); TOTAL PROTEIN 6.7 GM/DL (6.4-8.2)
[2021-12-01] MEDS: PANTOPRAZOLE 40MG VIAL IV SCH (08:22)
[2021-12-01 08:27] LABS: OSMOLALITY URINE 274 MOSM/KG (50-1400)
[2021-12-01 08:47] LABS: SODIUM,RANDOM URINE 22 MEQ/L
[2021-12-01] MEDS ORDERED: CHLORHEXIDINE GLUCONATE 0.12 % 15ML UDC (PERIDEX ORAL RINSE) MT SCH (09:00)
[2021-12-01] MEDS ORDERED: COSYNTROPIN 0.25 MG/ML VIAL (J0834 PER 0.25MG) IV ONE (09:10)
[2021-12-01 09:38] LABS: URINE PREG TEST NEGATIVE (NEGATIVE)
[2021-12-01 10:06] LABS: ABG BASE EXCESS 0.4 (-2.0-2.0); ABG HCO3 24.9 MEQ/L (22.0-26.0); ABG O2 SATURATION 99.1 % (95.0-99.0); ABG PARTIAL PRESSURE CO2 39.8 mmHg (35.0-45.0); ABG PARTIAL PRESSURE O2 139.5 mmHg (75.0-100.0); ABG STANDARD HCO3 24.9 MEQ/L (22.0-26.0); ABG TOTAL CO2 26.1 MEQ/L (22.0-29.0); ABG pH (ARTERIAL) 7.414 UNITS (7.350-7.450)
[2021-12-01] MEDS ORDERED: PIPERACILLIN/TAZOBACTAM SOD 3.375 GM in D5W MINI-BAG PLUS 50 ML IV SCH (10:30)
[2021-12-01] MEDS ORDERED: NS IV ONE (12:05)
[2021-12-01] MEDS ORDERED: D5W 1,000 ML IV ONE ×2 (12:05→13:25)
[2021-12-01] MEDS ORDERED: DESMOPRESSIN ACETATE IV ONE (12:05)
[2021-12-01] MEDS: DESMOPRESSIN 4 MCG/ML INJ VIAL/AMP (J2597) IV SCH ×2 (13:59→21:14)
[2021-12-01] MEDS ORDERED: ROCURONIUM BROMIDE 50 MG/5 ML VIAL ONE (14:11)
[2021-12-01] MEDS ORDERED: ETOMIDATE INJ 20MG/10ML VIAL ONE (14:11)
[2021-12-01] MEDS: PIPERACILLIN/TAZOBACTAM SOD 3.375 GM in D5W MINI-BAG PLUS 50 ML IV SCH ×2 (16:25→21:56)
[2021-12-01 16:56] LABS: BLOOD UREA NITROGEN 3 MG/DL (7-18); CALCIUM LEVEL 8.3 MG/DL (8.5-10.1); CARBON DIOXIDE LEVEL 28 MEQ/L (21-32); CHLORIDE LEVEL 105 MEQ/L (98-107); CREATININE FOR GFR 0.59 MG/DL (0.55-1.30); GLOMERULAR FILTRATION RATE > 60.0 (>60); GLUCOSE, FASTING 62 MG/DL (70-100); POTASSIUM SERUM 3.7 MEQ/L (3.5-5.1); SODIUM LEVEL 137 MEQ/L (136-145)
[2021-12-01] MEDS ORDERED: GLUCOSE 4GM CHEW TABLET PO PRN (17:00)
[2021-12-01] MEDS ORDERED: DEXTROSE 50% 50 ML SYRINGE IV PRN (17:00)
[2021-12-01] MEDS ORDERED: GLUCAGON INJ 1MG VIAL SC PRN (17:00)
[2021-12-01] MEDS: D5W 1,000 ML IV SCH ×2 (17:36→23:21)
[2021-12-01 20:32] LABS: BLOOD UREA NITROGEN 3 MG/DL (7-18); CALCIUM LEVEL 7.9 MG/DL (8.5-10.1); CARBON DIOXIDE LEVEL 28 MEQ/L (21-32); CHLORIDE LEVEL 103 MEQ/L (98-107); CREATININE FOR GFR 0.63 MG/DL (0.55-1.30); GLOMERULAR FILTRATION RATE > 60.0 (>60); GLUCOSE, FASTING 128 MG/DL (70-100); POTASSIUM SERUM 3.2 MEQ/L (3.5-5.1); SODIUM LEVEL 135 MEQ/L (136-145)
[2021-12-01] MEDS ORDERED: KCL 10MEQ/100ML SWI (KRUN) 10 MEQ in IV 2 EA IV SCH (20:35)
[2021-12-01] MEDS ORDERED: DESMOPRESSIN ACETATE 2 MCG in NS 50 ML IV SCH (21:00)
[2021-12-01] MEDS: KCL 10MEQ/100ML SWI (KRUN) 10 MEQ in IV 1 EA IV SCH (23:13)
[2021-12-02] VITALS: BP 99/58
[2021-12-02] MEDS: KCL 10MEQ/100ML SWI (KRUN) 10 MEQ in IV 1 EA IV SCH ×4 (00:20→08:17)
[2021-12-02] MEDS: PIPERACILLIN/TAZOBACTAM SOD 3.375 GM in D5W MINI-BAG PLUS 50 ML IV SCH ×2 (03:45→09:48)
[2021-12-02 04:00] VITALS: BP 101/63
[2021-12-02 05:05] LABS: BLOOD UREA NITROGEN 2 MG/DL (7-18); CALCIUM LEVEL 8.5 MG/DL (8.5-10.1); CARBON DIOXIDE LEVEL 27 MEQ/L (21-32); CHLORIDE LEVEL 104 MEQ/L (98-107); GLOMERULAR FILTRATION RATE > 60.0 (>60); GLUCOSE, FASTING 134 MG/DL (70-100); SODIUM LEVEL 137 MEQ/L (136-145)
[2021-12-02] MEDS: HEPARIN SOD (PORCINE) 5000UNITS/ML 1ML VIAL/SYRINGE SC SCH ×3 (05:36→21:00)
[2021-12-02] MEDS: DESMOPRESSIN 4 MCG/ML INJ VIAL/AMP (J2597) IV SCH (06:08)
[2021-12-02 07:55] LABS: BLOOD UREA NITROGEN 2 MG/DL (7-18); CALCIUM LEVEL 8.2 MG/DL (8.5-10.1); CARBON DIOXIDE LEVEL 29 MEQ/L (21-32); CHLORIDE LEVEL 105 MEQ/L (98-107); CREATININE FOR GFR 0.51 MG/DL (0.55-1.30); GLOMERULAR FILTRATION RATE > 60.0 (>60); GLUCOSE, FASTING 106 MG/DL (70-100); MAGNESIUM LEVEL 2.4 MG/DL (1.8-2.4); POTASSIUM SERUM 3.3 MEQ/L (3.5-5.1); SODIUM LEVEL 138 MEQ/L (136-145)
[2021-12-02 08:00] VITALS: BP 104/56
[2021-12-02] MEDS: PANTOPRAZOLE 40MG VIAL IV SCH (08:17)
[2021-12-02] MEDS: D5W 1,000 ML IV SCH ×2 (08:18→17:16)
[2021-12-02] MEDS ORDERED: LORazepam 2 MG/ML VIAL IV ONE (09:30)
[2021-12-02] MEDS ORDERED: POTASSIUM CHLORIDE 10MEQ SR TABLET PO ONE (10:45)
[2021-12-02] MEDS ORDERED: PROHANCE 279.3MG/ML 15ML VIAL As Ordered ONE (11:37)
[2021-12-02] MEDS ORDERED: PROHANCE 279.3MG/ML 5ML VIAL As Ordered ONE (11:37)
[2021-12-02] MEDS ORDERED: LORazepam 2 MG/ML VIAL IV STA (12:04)
[2021-12-02 12:50] VITALS: BP 125/71
[2021-12-02] MEDS: DESMOPRESSIN ACETATE 0.1 MG TAB PO SCH ×2 (12:57→21:00)
[2021-12-02 14:24] LABS: BLOOD UREA NITROGEN 3 MG/DL (7-18); CALCIUM LEVEL 8.4 MG/DL (8.5-10.1); CARBON DIOXIDE LEVEL 28 MEQ/L (21-32); CHLORIDE LEVEL 102 MEQ/L (98-107); CREATININE FOR GFR 0.56 MG/DL (0.55-1.30); GLOMERULAR FILTRATION RATE > 60.0 (>60); GLUCOSE, FASTING 108 MG/DL (70-100); POTASSIUM SERUM 3.4 MEQ/L (3.5-5.1); SODIUM LEVEL 135 MEQ/L (136-145)
[2021-12-02 16:00] VITALS: BP 123/80
[2021-12-02 18:23] LABS: BLOOD UREA NITROGEN 3 MG/DL (7-18); CALCIUM LEVEL 8.1 MG/DL (8.5-10.1); CARBON DIOXIDE LEVEL 28 MEQ/L (21-32); CHLORIDE LEVEL 101 MEQ/L (98-107); CREATININE FOR GFR 0.54 MG/DL (0.55-1.30); GLOMERULAR FILTRATION RATE > 60.0 (>60); GLUCOSE, FASTING 108 MG/DL (70-100); POTASSIUM SERUM 3.6 MEQ/L (3.5-5.1); SODIUM LEVEL 135 MEQ/L (136-145)
[2021-12-02 20:00] VITALS: BP 126/70
[2021-12-02 22:50] LABS: BLOOD UREA NITROGEN 3 MG/DL (7-18); CALCIUM LEVEL 8.4 MG/DL (8.5-10.1); CARBON DIOXIDE LEVEL 27 MEQ/L (21-32); CHLORIDE LEVEL 102 MEQ/L (98-107); CREATININE FOR GFR 0.55 MG/DL (0.55-1.30); GLOMERULAR FILTRATION RATE > 60.0 (>60); GLUCOSE, FASTING 127 MG/DL (70-100); SODIUM LEVEL 135 MEQ/L (136-145)
[2021-12-02] MEDS ORDERED: KCL 10MEQ/100ML SWI (KRUN) 10 MEQ in IV 1 EA IV SCH (23:00)
[2021-12-03] VITALS (8 sets, daily range): BP systolic 100–123; BP diastolic 56–83
[2021-12-03] MEDS ORDERED: POTASSIUM CHLORIDE 10MEQ SR TABLET PO ONE
[2021-12-03] MEDS: HEPARIN SOD (PORCINE) 5000UNITS/ML 1ML VIAL/SYRINGE SC SCH ×3 (05:29→23:27)
[2021-12-03 06:30] LABS: BASO % 0.6 % (0.0-1.0); EOS # 0.4 10^3/uL (0.0-0.5); EOS % 5.2 % (0.0-3.0); HEMATOCRIT 34.1 % (36.0-47.0); HEMOGLOBIN 11.4 g/dl (12.0-15.5); LYMPH # 2.4 10^3/uL (1.5-5.0); LYMPH % 33.1 % (24.0-44.0); MEAN CORPUSCULAR HEMOGLOBIN 28.9 pg (27.0-33.0); MEAN CORPUSCULAR HGB CONC 33.4 g/dl (32.0-36.5); MEAN CORPUSCULAR VOLUME 86.3 fl (80.0-96.0); MONO # 0.6 10^3/uL (0.0-0.8); MONO % 8.1 % (2.0-8.0); NEUTROPHILS # 3.8 10^3/uL (1.5-8.5); NEUTROPHILS % 52.4 % (36.0-66.0); PLATELET COUNT, AUTOMATED 237 10^3/uL (150-450); RED BLOOD COUNT 3.95 10^6/uL (4.00-5.40); WHITE BLOOD COUNT 7.2 10^3/uL (4.0-10.0)
[2021-12-03 07:31] LABS: ALBUMIN 3.1 GM/DL (3.2-5.2); BLOOD UREA NITROGEN 3 MG/DL (7-18); CALCIUM LEVEL 8.3 MG/DL (8.5-10.1); CARBON DIOXIDE LEVEL 24 MEQ/L (21-32); CHLORIDE LEVEL 102 MEQ/L (98-107); CREATININE FOR GFR 0.63 MG/DL (0.55-1.30); GLOMERULAR FILTRATION RATE > 60.0 (>60); GLUCOSE, FASTING 131 MG/DL (70-100); PHOSPHORUS LEVEL 3.3 MG/DL (2.5-4.9); POTASSIUM SERUM 3.5 MEQ/L (3.5-5.1); SODIUM LEVEL 135 MEQ/L (136-145)
[2021-12-03] MEDS: PANTOPRAZOLE 40MG TAB (PROTONIX) PO SCH (08:56)
[2021-12-03] MEDS: DESMOPRESSIN ACETATE 0.1 MG TAB PO SCH ×2 (08:56→20:29)
[2021-12-03 09:55] LABS: CORTISOL 60 MINUTES 26.4 UG/DL
[2021-12-03] MEDS: D5W 1,000 ML IV SCH (10:23)
[2021-12-04 03:58] VITALS: BP 113/64
[2021-12-04] MEDS: HEPARIN SOD (PORCINE) 5000UNITS/ML 1ML VIAL/SYRINGE SC SCH ×3 (05:36→21:46)
[2021-12-04 06:01] LABS: HEMATOCRIT 34.8 % (36.0-47.0); HEMOGLOBIN 11.5 g/dl (12.0-15.5); MEAN CORPUSCULAR HEMOGLOBIN 28.9 pg (27.0-33.0); MEAN CORPUSCULAR VOLUME 87.4 fl (80.0-96.0); PLATELET COUNT, AUTOMATED 266 10^3/uL (150-450); RED BLOOD COUNT 3.98 10^6/uL (4.00-5.40); WHITE BLOOD COUNT 8.3 10^3/uL (4.0-10.0)
[2021-12-04 06:48] LABS: BLOOD UREA NITROGEN 6 MG/DL (7-18); CALCIUM LEVEL 8.8 MG/DL (8.5-10.1); CARBON DIOXIDE LEVEL 28 MEQ/L (21-32); CHLORIDE LEVEL 107 MEQ/L (98-107); CREATININE FOR GFR 0.57 MG/DL (0.55-1.30); GLOMERULAR FILTRATION RATE > 60.0 (>60); GLUCOSE, FASTING 107 MG/DL (70-100); MAGNESIUM LEVEL 2.2 MG/DL (1.8-2.4); PHOSPHORUS LEVEL 4.1 MG/DL (2.5-4.9); POTASSIUM SERUM 3.6 MEQ/L (3.5-5.1); SODIUM LEVEL 139 MEQ/L (136-145)
[2021-12-04 08:00] VITALS: BP 131/74
[2021-12-04] MEDS: DESMOPRESSIN ACETATE 0.1 MG TAB PO SCH ×2 (08:06→20:48)
[2021-12-04] MEDS: PANTOPRAZOLE 40MG TAB (PROTONIX) PO SCH (08:07)
[2021-12-04] MEDS ORDERED: POTASSIUM CHLORIDE INJ 10 MEQ in NS 1,000 ML IV ONE (11:00)
[2021-12-04 11:38] VITALS: BP 119/69
[2021-12-04 15:45] VITALS: BP 114/74
[2021-12-04 20:20] VITALS: BP 128/78
[2021-12-05] VITALS (7 sets, daily range): BP systolic 109–148; BP diastolic 61–91
[2021-12-05 05:54] LABS: HEMATOCRIT 37.5 % (36.0-47.0); HEMOGLOBIN 12.6 g/dl (12.0-15.5); MEAN CORPUSCULAR HEMOGLOBIN 29.2 pg (27.0-33.0); MEAN CORPUSCULAR HGB CONC 33.6 g/dl (32.0-36.5); MEAN CORPUSCULAR VOLUME 86.8 fl (80.0-96.0); PLATELET COUNT, AUTOMATED 306 10^3/uL (150-450); RED BLOOD COUNT 4.32 10^6/uL (4.00-5.40); WHITE BLOOD COUNT 9.3 10^3/uL (4.0-10.0)
[2021-12-05 06:12] LABS: BLOOD UREA NITROGEN 8 MG/DL (7-18); CALCIUM LEVEL 9.3 MG/DL (8.5-10.1); CARBON DIOXIDE LEVEL 24 MEQ/L (21-32); CHLORIDE LEVEL 107 MEQ/L (98-107); CREATININE FOR GFR 0.62 MG/DL (0.55-1.30); GLOMERULAR FILTRATION RATE > 60.0 (>60); GLUCOSE, FASTING 111 MG/DL (70-100); MAGNESIUM LEVEL 2.2 MG/DL (1.8-2.4); PHOSPHORUS LEVEL 3.7 MG/DL (2.5-4.9); POTASSIUM SERUM 3.5 MEQ/L (3.5-5.1); SODIUM LEVEL 138 MEQ/L (136-145)
[2021-12-05] MEDS ORDERED: POTASSIUM CHLORIDE 10MEQ SR TABLET PO ONE ×2 (06:25→06:45)
[2021-12-05] MEDS: HEPARIN SOD (PORCINE) 5000UNITS/ML 1ML VIAL/SYRINGE SC SCH ×3 (06:27→21:26)
[2021-12-05] MEDS: DESMOPRESSIN ACETATE 0.1 MG TAB PO SCH ×2 (08:12→21:26)
[2021-12-05] MEDS: NS 1,000 ML IV SCH ×2 (08:12→18:38)
[2021-12-05] MEDS: PANTOPRAZOLE 40MG TAB (PROTONIX) PO SCH (08:12)
== END 2021-12-06 01:34 | disposition left against medical advice (07) | DRG 424 ==
LOC: M ED 18:18 → M ED INP 12-01 01:27 → ENRESERV 12-01 01:50 → M ICU 12-01 02:41 → M PCU 12-02 18:29
PROVIDERS: ADMIT Internal Medicine; ATTEND Internal Medicine
PROC: 0BH17EZ Insertion of Endotracheal Airway into Trachea, Via Natural or Artificial Opening (ICD-10-PCS; principal; 2021-12-01)
PROC: 5A1935Z Respiratory Ventilation, Less than 24 Consecutive Hours (ICD-10-PCS; 2021-12-01)
DX: E23.2 Diabetes insipidus (principal); J96.01 Acute respiratory failure with hypoxia; G93.40 Encephalopathy, unspecified; E72.20 Disorder of urea cycle metabolism, unspecified; M62.82 Rhabdomyolysis; R56.9 Unspecified convulsions; E66.9 Obesity, unspecified; F32.A Depression, unspecified; Z68.34 Body mass index [BMI] 34.0-34.9, adult; D72.829 Elevated white blood cell count, unspecified; F41.9 Anxiety disorder, unspecified; R74.01 Elevation of levels of liver transaminase levels; R91.8 Other nonspecific abnormal finding of lung field; Z79.899 Other long term (current) drug therapy; Z90.49 Acquired absence of other specified parts of digestive tract

== ENCOUNTER → 2022-05-16 | Outpatient (REF) | payer MEDICAID ==
[~2022-05-16] MED LIST changes: +ZOLO100T PO
[2022-05-16 12:33] LABS: BASO % 0.3 % (0.0-1.0); EOS # 0.1 10^3/uL (0.0-0.5); EOS % 1.3 % (0.0-3.0); HEMATOCRIT 39.1 % (36.0-47.0); HEMOGLOBIN 12.5 g/dl (12.0-15.5); LYMPH # 1.9 10^3/uL (1.5-5.0); LYMPH % 28.1 % (24.0-44.0); MEAN CORPUSCULAR HEMOGLOBIN 27.8 pg (27.0-33.0); MEAN CORPUSCULAR VOLUME 87.1 fl (80.0-96.0); MONO # 0.5 10^3/uL (0.0-0.8); NEUTROPHILS # 4.3 10^3/uL (1.5-8.5); NEUTROPHILS % 63.2 % (36.0-66.0); PLATELET COUNT, AUTOMATED 270 10^3/uL (150-450); RED BLOOD COUNT 4.49 10^6/uL (4.00-5.40); WHITE BLOOD COUNT 6.8 10^3/uL (4.0-10.0)
[2022-05-16 12:35] LABS: ALBUMIN 3.9 G/DL (3.2-5.2); ALKALINE PHOSPHATASE 53 U/L (46-116); ALT/SGPT 27 U/L (7.0-40); AST/SGOT 26 U/L (<34); BILIRUBIN,TOTAL 0.5 MG/DL (0.3-1.2); BLOOD UREA NITROGEN 10 MG/DL (9-23); CALCIUM LEVEL 8.7 MG/DL (8.5-10.1); CARBON DIOXIDE LEVEL 23 MMOL/L (20-31); CHLORIDE LEVEL 107 MMOL/L (98-107); CHOLESTEROL LEVEL 161 MG/DL (<200); CHOLESTEROL RISK RATIO 3.53 (<5); CREATININE FOR GFR 0.65 MG/DL (0.55-1.30); GLOMERULAR FILTRATION RATE > 60.0 (>58); GLUCOSE, FASTING 94 MG/DL (60-100); HDL CHOLESTEROL 45.5 MG/DL (>40); LDL CHOLESTEROL 97.3 MG/DL (<100); NON-HDL-C 116 MG/DL; POTASSIUM SERUM 4.3 MMOL/L (3.5-5.1); SODIUM LEVEL 137 MMOL/L (136-145); TOTAL PROTEIN 7.4 G/DL (5.7-8.2); TRIGLYCERIDES LEVEL 91 MG/DL (<150)
[2022-05-16 12:39] LABS: TOTAL 25(OH) VITAMIN D 23.7 NG/ML (20.0-100.0)
[2022-05-16 13:10] LABS: HEMOGLOBIN A1c 5.1 % (4.0-6.0)
== END ==
LOC: M LAB REF 12:09
PROVIDERS: ATTEND Nurse Practitioner Family
DX: Z68.31 Body mass index [BMI] 31.0-31.9, adult (principal); R53.83 Other fatigue; E55.9 Vitamin D deficiency, unspecified

== ENCOUNTER 2022-12-06 15:21 | Emergency (ER) | payer MEDICAID, OTHER ==
[~2022-12-06] VITALS: Ht 180.3 cm; Wt 104.5 kg
[2022-12-06] MEDS ORDERED: PROP20TA72 (15:33)
[2022-12-06] MEDS ORDERED: PROZ20CA11 (15:33)
[2022-12-06] MEDS ORDERED: LATU20TA (15:33)
[2022-12-06] MEDS ORDERED: FLUO20CA22 (15:33)
[2022-12-06] MEDS ORDERED: LURA20TA (15:33)
[2022-12-06] MEDS ORDERED: NS 1,000 ML IV SCH (17:20)
[2022-12-06] MEDS ORDERED: ONDANSETRON 4MG 2ML VIAL IV ONE (17:20)
[2022-12-06 17:43] LABS: BASO % 0.4 % (0.0-1.0); EOS # 0.1 10^3/uL (0.0-0.5); EOS % 1.3 % (0.0-3.0); HEMATOCRIT 38.3 % (36.0-47.0); HEMOGLOBIN 12.6 g/dl (12.0-15.5); LYMPH % 21.6 % (24.0-44.0); MEAN CORPUSCULAR HEMOGLOBIN 29.3 pg (27.0-33.0); MEAN CORPUSCULAR HGB CONC 32.9 g/dl (32.0-36.5); MEAN CORPUSCULAR VOLUME 89.1 fl (80.0-96.0); MONO # 0.5 10^3/uL (0.0-0.8); MONO % 5.4 % (2.0-8.0); NEUTROPHILS # 6.5 10^3/uL (1.5-8.5); PLATELET COUNT, AUTOMATED 323 10^3/uL (150-450); WHITE BLOOD COUNT 9.2 10^3/uL (4.0-10.0)
[2022-12-06 17:50] LABS: CK-MB VALUE MASS 1.2 NG/ML (<3.6)
[2022-12-06 17:52] LABS: ALBUMIN 4.1 G/DL (3.2-5.2); ALKALINE PHOSPHATASE 68 U/L (46-116); ALT/SGPT 26 U/L (7.0-40); AST/SGOT 21 U/L (<34); BILIRUBIN,DIRECT < 0.1 MG/DL (<0.4); BILIRUBIN,TOTAL 0.2 MG/DL (0.3-1.2); BLOOD UREA NITROGEN 11 MG/DL (9-23); CALCIUM LEVEL 8.8 MG/DL (8.5-10.1); CARBON DIOXIDE LEVEL 25 MMOL/L (20-31); CHLORIDE LEVEL 106 MMOL/L (98-107); CREATININE FOR GFR 0.73 MG/DL (0.55-1.30); GLOMERULAR FILTRATION RATE > 60.0 (>58); GLUCOSE, FASTING 80 MG/DL (60-100); SODIUM LEVEL 140 MMOL/L (136-145); TOTAL PROTEIN 7.8 G/DL (5.7-8.2)
[2022-12-06 17:53] LABS: HCG, SERUM QUALITATIVE NEGATIVE (NEGATIVE)
[2022-12-06 17:54] LABS: CPK CREATINE PHOSPHOKINASE 219 U/L (34-145); MB/CK RELATIVE INDEX 0.54 (< OR =4)
[2022-12-06 19:32] LABS: CK-MB VALUE MASS 1.1 NG/ML (<3.6)
[2022-12-06 19:33] LABS: CPK CREATINE PHOSPHOKINASE 190 U/L (34-145); MB/CK RELATIVE INDEX 0.57 (< OR =4)
[2022-12-06 20:08] VITALS: BP 107/64; TEMP 98.4; O2SAT 97
== END 2022-12-06 20:30 | disposition home or self-care (01) ==
LOC: M ED 15:21
DX: R11.0 Nausea (principal); R42 Dizziness and giddiness; R51.9 Headache, unspecified; F90.9 Attention-deficit hyperactivity disorder, unspecified type; F41.9 Anxiety disorder, unspecified; F32.A Depression, unspecified; G40.909 Epilepsy, unspecified, not intractable, without status epilepticus; Z88.8 Allergy status to other drugs, medicaments and biological substances; Z79.899 Other long term (current) drug therapy
CPT/HCPCS: 70450; 71046; 80048; 80076; 82550; 82553; 84702; 84703; 85025; 93005; 93041; 96361; 96374; 99284; J2405

== ENCOUNTER 2023-03-16 01:10 | Emergency (ER) | payer MEDICAID, OTHER ==
[~2023-03-16] VITALS: Ht 180.3 cm; Wt 110.1 kg
[~2023-03-16 01:10] MED LIST changes: +FLUO20CA22; +LATU20TA; +LURA20TA; +PROP20TA72; +PROZ20CA11
[2023-03-16 02:12] LABS: RSV AMPLIFICATION NEGATIVE (NEGATIVE)
[2023-03-16 04:18] VITALS: BP 131/85; TEMP 97.5; O2SAT 99
== END 2023-03-16 04:34 | disposition left against medical advice (07) ==
LOC: M ED 01:10
DX: Z53.21 Procedure and treatment not carried out due to patient leaving prior to being seen by health care provider (principal)

== ENCOUNTER → 2023-04-16 | Outpatient (REF) | payer OTHER, MEDICAID | LOC: M LAB REF 13:13 | PROVIDERS: ATTEND Nurse Practitioner Family | DX: E55.9 Vitamin D deficiency, unspecified (principal) ==

== ENCOUNTER → 2023-05-13 | Outpatient (CLI) | payer OTHER | LOC: M WHC 12:52 | PROVIDERS: ATTEND Nurse Practitioner Family | DX: Z12.31 Encounter for screening mammogram for malignant neoplasm of breast (principal) ==

== ENCOUNTER → 2023-06-02 | Outpatient (REF) | payer OTHER | LOC: M LAB REF 18:03 | PROVIDERS: ATTEND Nurse Practitioner Family | DX: R93.0 Abnormal findings on diagnostic imaging of skull and head, not elsewhere classified (principal); R89.9 Unspecified abnormal finding in specimens from other organs, systems and tissues ==

== ENCOUNTER 2023-06-22 11:57 | Emergency (ER) | payer MEDICAID, OTHER ==
[~2023-06-22] VITALS: Ht 180.3 cm; Wt 103.9 kg
[2023-06-22 11:58] VITALS: BP 129/84; TEMP 97.9; O2SAT 97
== END 2023-06-22 14:55 | disposition home or self-care (01) ==
LOC: M ED 11:57
DX: H11.32 Conjunctival hemorrhage, left eye (principal); Z88.8 Allergy status to other drugs, medicaments and biological substances; Z79.899 Other long term (current) drug therapy

== ENCOUNTER → 2023-06-23 | Outpatient (CLI) | payer OTHER ==
[~2023-06-23] MED LIST changes: +PROHANCE 279.3MG/ML 15ML VIAL ONE; +PROHANCE 279.3MG/ML 5ML VIAL ONE
== END ==
LOC: M PLAIMG 13:10
PROVIDERS: ATTEND Nurse Practitioner Family
DX: G35 Multiple sclerosis (principal)

== ENCOUNTER → 2023-06-25 | Outpatient (REF) | payer OTHER ==
[~2023-06-25] MED LIST changes: -PROHANCE 279.3MG/ML 15ML VIAL ONE; -PROHANCE 279.3MG/ML 5ML VIAL ONE
== END ==
LOC: M LAB REF 09:51
PROVIDERS: ATTEND Surgery
DX: C43.9 Malignant melanoma of skin, unspecified (principal)

== ENCOUNTER 2023-08-25 11:59 | Emergency (ER) | payer MEDICAID, OTHER ==
[~2023-08-25] VITALS: Ht 180.3 cm; Wt 45.5 kg
[~2023-08-25 11:59] MED LIST changes: +FLUO-365; -FLUO20CA22; +ONDA-282 PO; -ONDA4TAB6 PO
[2023-08-25 12:15] VITALS: BP 115/81; TEMP 98.1; O2SAT 97
== END 2023-08-25 14:20 | disposition left against medical advice (07) ==
LOC: EDBD 11:59 → M ED 11:59
DX: Z53.21 Procedure and treatment not carried out due to patient leaving prior to being seen by health care provider (principal)

== ENCOUNTER 2023-09-24 09:26 | Day surgery (SDC) | payer OTHER ==
[~2023-09-24] VITALS: Ht 170.2 cm; Wt 97.5 kg
[~2023-09-24 09:26] MED LIST changes: +NS 1,000 ML IV ONE
[2023-09-24] MEDS ORDERED: fentaNYL 100 MCG/2 ML INJECTION As Ordered ONE (12:57)
[2023-09-24] MEDS ORDERED: propofoL 200 MG/20 ML VIAL As Ordered ONE (12:57)
[2023-09-24] MEDS ORDERED: LIDOCAINE 2% 100MG/5ML SDV (FOR ANES.) As Ordered ONE (12:58)
[2023-09-24] MEDS ORDERED: ONDANSETRON 4MG 2ML VIAL As Ordered ONE (13:01)
[2023-09-24 13:45] VITALS: BP 116/66; TEMP 97.9; O2SAT 100
== END 2023-09-24 13:53 | disposition home or self-care (01) ==
LOC: M OPP 09:26
PROVIDERS: ATTEND Surgery
DX: K64.1 Second degree hemorrhoids (principal); K92.1 Melena; K29.70 Gastritis, unspecified, without bleeding; K31.89 Other diseases of stomach and duodenum; K30 Functional dyspepsia; Z79.899 Other long term (current) drug therapy; Z88.8 Allergy status to other drugs, medicaments and biological substances
CPT/HCPCS: 43239; 45378; 88305; J2405; J3010

== ENCOUNTER → 2023-10-07 | Outpatient (REF) | payer OTHER ==
[~2023-10-07] MED LIST changes: -NS 1,000 ML IV ONE
[2023-10-07 21:14] LABS: Trichomonas vaginalis (AMP) POSITIVE (NEGATIVE)
[2023-10-07 21:54] LABS: GC DNA AMPLIFICATION NEGATIVE (NEGATIVE)
== END ==
LOC: M SFHCWAGY 17:12
PROVIDERS: ATTEND Obstetrics & Gynecology
DX: Z12.4 Encounter for screening for malignant neoplasm of cervix (principal); Z01.419 Encounter for gynecological examination (general) (routine) without abnormal findings; Z77.9 Other contact with and (suspected) exposures hazardous to health

== ENCOUNTER 2024-02-27 12:40 | Emergency (ER) | payer OTHER ==
[~2024-02-27] VITALS: Ht 180.3 cm; Wt 97.7 kg
[2024-02-27 12:48] VITALS: TEMP 99.7
[2024-02-27 13:39] LABS: HEMATOCRIT 40.5 % (36.0-47.0); HEMOGLOBIN 13.4 g/dl (12.0-15.5); MEAN CORPUSCULAR HEMOGLOBIN 28.3 pg (27.0-33.0); MEAN CORPUSCULAR HGB CONC 33.1 g/dl (32.0-36.5); MEAN CORPUSCULAR VOLUME 85.6 fl (80.0-96.0); PLATELET COUNT, AUTOMATED 383 10^3/uL (150-450); RED BLOOD COUNT 4.73 10^6/uL (4.00-5.40); WHITE BLOOD COUNT 11.1 10^3/uL (4.0-10.0)
[2024-02-27 14:00] VITALS: BP 134/82; O2SAT 98
[2024-02-27 14:00] LABS: AMPHETAMINES LEVEL URINE NEGATIVE (NEGATIVE); BARBITURATES URINE NEGATIVE (NEGATIVE); BENZODIAZEPINES URINE NEGATIVE (NEGATIVE); CANNABINOIDS URINE NEGATIVE (NEGATIVE); COCAINE METABOLITE URINE NEGATIVE (NEGATIVE); ETHYL ALCOHOL (ETHANOL) 0.003 % (0.000-0.010); METHADONE URINE NEGATIVE (NEGATIVE); OPIATES URINE NEGATIVE (NEGATIVE); PHENCYCLIDINE URINE NEGATIVE (NEGATIVE)
[2024-02-27 14:02] LABS: SALICYLATE LEVEL < 3.0 MG/DL (<30)
[2024-02-27 14:03] LABS: ALBUMIN 3.8 G/DL (3.2-5.2); ALKALINE PHOSPHATASE 74 U/L (35-104); ALT/SGPT 26 U/L (7.0-40); AST/SGOT 15 U/L (<34); BILIRUBIN,DIRECT < 0.1 MG/DL (<0.4); BILIRUBIN,TOTAL 0.3 MG/DL (0.3-1.2); BLOOD UREA NITROGEN 10 MG/DL (9-23); CALCIUM LEVEL 9.6 MG/DL (8.5-10.1); CARBON DIOXIDE LEVEL 23 MMOL/L (20-31); CHLORIDE LEVEL 104 MMOL/L (98-107); CREATININE FOR GFR 0.76 MG/DL (0.55-1.30); GLOMERULAR FILTRATION RATE > 60.0 (>58); GLUCOSE, FASTING 140 MG/DL (60-100); SODIUM LEVEL 137 MMOL/L (136-145); TOTAL PROTEIN 8.1 G/DL (5.7-8.2)
[2024-02-27 14:05] LABS: HCG, SERUM QUALITATIVE NEGATIVE (NEGATIVE)
[2024-02-27 14:06] LABS: THYROID STIMULATING HORMONE 2.091 uIU/ML (0.55-4.78)
== END 2024-02-27 18:02 | disposition home or self-care (01) ==
LOC: M ED 12:40 → EDBD 12:40 → M ED 18:02
DX: R11.0 Nausea (principal); G40.909 Epilepsy, unspecified, not intractable, without status epilepticus; Z88.8 Allergy status to other drugs, medicaments and biological substances; Z79.899 Other long term (current) drug therapy

== ENCOUNTER 2024-03-28 12:22 | Inpatient (IN) | payer OTHER ==
[~2024-03-28] VITALS: Ht 180.3 cm; Wt 103.0 kg
[2024-03-28] MEDS: BOOSTRIX VACCINE (TETANUS/DIPHTH/ACEL. PERTUSSIS) 0.5ML SYR IM.IMMUN ONE (13:22)
[2024-03-28 13:28] LABS: HEMATOCRIT 34.3 % (36.0-47.0); HEMOGLOBIN 11.2 g/dl (12.0-15.5); MEAN CORPUSCULAR HEMOGLOBIN 28.2 pg (27.0-33.0); MEAN CORPUSCULAR HGB CONC 32.7 g/dl (32.0-36.5); MEAN CORPUSCULAR VOLUME 86.4 fl (80.0-96.0); PLATELET COUNT, AUTOMATED 319 10^3/uL (150-450); RED BLOOD COUNT 3.97 10^6/uL (4.00-5.40); WHITE BLOOD COUNT 9.3 10^3/uL (4.0-10.0)
[2024-03-28 13:55] LABS: ETHYL ALCOHOL (ETHANOL) < 0.003 % (0.000-0.010)
[2024-03-28 13:56] LABS: ALBUMIN 3.7 G/DL (3.2-5.2); ALKALINE PHOSPHATASE 70 U/L (35-104); ALT/SGPT 28 U/L (7.0-40); AST/SGOT 29 U/L (<34); BILIRUBIN,DIRECT < 0.1 MG/DL (<0.4); BILIRUBIN,TOTAL 0.2 MG/DL (0.3-1.2); BLOOD UREA NITROGEN 12 MG/DL (9-23); CALCIUM LEVEL 9.3 MG/DL (8.5-10.1); CARBON DIOXIDE LEVEL 22 MMOL/L (20-31); CHLORIDE LEVEL 111 MMOL/L (98-107); CREATININE FOR GFR 0.74 MG/DL (0.55-1.30); GLOMERULAR FILTRATION RATE > 60.0 (>58); GLUCOSE, FASTING 106 MG/DL (60-100); POTASSIUM SERUM 4.3 MMOL/L (3.5-5.1); SALICYLATE LEVEL < 3.0 MG/DL (<30); SODIUM LEVEL 142 MMOL/L (136-145); TOTAL PROTEIN 7.3 G/DL (5.7-8.2)
[2024-03-28 13:58] LABS: HCG, SERUM QUALITATIVE NEGATIVE (NEGATIVE)
[2024-03-28 13:59] LABS: THYROID STIMULATING HORMONE 2.319 uIU/ML (0.55-4.78)
[2024-03-28 14:49] LABS: AMPHETAMINES LEVEL URINE NEGATIVE (NEGATIVE); BARBITURATES URINE NEGATIVE (NEGATIVE); BENZODIAZEPINES URINE NEGATIVE (NEGATIVE)
[2024-03-28 14:50] LABS: CANNABINOIDS URINE NEGATIVE (NEGATIVE); COCAINE METABOLITE URINE NEGATIVE (NEGATIVE); METHADONE URINE NEGATIVE (NEGATIVE); OPIATES URINE NEGATIVE (NEGATIVE); PHENCYCLIDINE URINE NEGATIVE (NEGATIVE)
[2024-03-28] MEDS ORDERED: FLUO40CA PO (15:57)
[2024-03-28] MEDS ORDERED: PROP40TA62 PO (15:57)
[2024-03-28] MEDS ORDERED: LAMO100T3 PO (15:57)
[2024-03-28] MEDS ORDERED: OLAN1TAB16 PO (16:08)
[2024-03-28] MEDS ORDERED: HOME MED LIST COMPLETE! XX SCH (16:10)
[2024-03-28] MEDS: PROPRANOLOL 20 MG TAB PO SCH (17:02)
[2024-03-28] MEDS: OLANZapine 5 MG TAB PO SCH (21:56)
[2024-03-28] MEDS: lamoTRIgine 100MG TAB PO SCH (21:57)
[2024-03-29] MEDS ORDERED: MOM 30ML SUSPENSION UDC PO PRN (08:40)
[2024-03-29] MEDS ORDERED: MAALOX 30 ML SUSP *UDC PO PRN (08:40)
[2024-03-29] MEDS ORDERED: IBUPROFEN 400MG TAB PO PRN (08:40)
[2024-03-29] MEDS ORDERED: ACETAMINOPHEN 325 MG TAB PO PRN (08:40)
[2024-03-29] MEDS: NICOTINE 14 MG/24 HR TRANSDERMAL TD SCH (09:00)
[2024-03-29] MEDS: FLUoxetine 20MG CAP PO SCH (09:27)
[2024-03-29 09:38] VITALS: BP 114/71; TEMP 97.3; O2SAT 100
[2024-03-29] MEDS: PROPRANOLOL 20 MG TAB PO SCH ×2 (11:15→16:16)
[2024-03-29 15:24] VITALS: BP 147/71; TEMP 97.4; O2SAT 98
[2024-03-29] MEDS: traZODone 50 MG TAB PO PRN (21:19)
[2024-03-29] MEDS: lamoTRIgine 100MG TAB PO SCH (21:19)
[2024-03-29] MEDS: OLANZapine 5 MG TAB PO SCH (21:22)
[2024-03-29] MEDS: diphenhydrAMINE 25MG CAP PO PRN (21:22)
[2024-03-30 06:24] VITALS: BP 98/53; TEMP 97.1; O2SAT 98
[2024-03-30 08:39] VITALS: BP 103/58
[2024-03-30] MEDS: FLUoxetine 20MG CAP PO SCH (08:41)
[2024-03-30 16:36] VITALS: BP 108/58; TEMP 98.4; O2SAT 99
[2024-03-30] MEDS: ALPRAZolam 0.5 MG TAB PO ONE (17:19)
[2024-03-30] MEDS: PERCOCET 5MG/325MG TAB PO ONE (17:41)
[2024-03-30] MEDS ORDERED: IBUPROFEN 200MG TAB PO ONE (18:00)
[2024-03-30] MEDS ORDERED: VANICREAM MOISTURIZING SKIN CREAM 113GM TUBE TOP SCH (21:00)
[2024-03-30] MEDS: VANICREAM MOISTURIZING SKIN CREAM 113GM TUBE TOP SCH (21:42)
[2024-03-30] MEDS: MUPIROCIN 2% OINT 22 GM TUBE TOP SCH (21:43)
[2024-03-31 06:31] VITALS: BP 121/74; TEMP 97; O2SAT 96
[2024-03-31 08:58] VITALS: BP 114/71
[2024-03-31] MEDS: OLANZapine ORAL DISINTEGRATING TAB 5MG PO PRN (10:12)
[2024-03-31 14:55] VITALS: BP 109/62; TEMP 98.1; O2SAT 100
[2024-04-01 06:24] VITALS: BP 116/61; TEMP 97.2; O2SAT 96
[2024-04-01] MEDS ORDERED: TRAZ-252 PO (08:04)
[2024-04-01] MEDS ORDERED: MUPI2OI TOP (08:04)
[2024-04-01] MEDS ORDERED: FLUO40CA PO (08:04)
[2024-04-01] MEDS ORDERED: LAMO100T3 PO (08:04)
[2024-04-01] MEDS ORDERED: PROP40TA62 PO (08:04)
[2024-04-01] MEDS ORDERED: VANI1CRE5 TOP (08:04)
[2024-04-01] MEDS ORDERED: OLAN1TAB16 PO (08:04)
[2024-04-01 15:03] VITALS: BP 109/57; TEMP 97.8; O2SAT 98
[2024-04-02 06:31] VITALS: BP 100/57; TEMP 97; O2SAT 99
[2024-04-02 09:00] VITALS: BP 108/68
== END 2024-04-02 12:45 | disposition home or self-care (01) | DRG 753 ==
LOC: M ED 12:22 → M ED INP 03-29 08:37 → M PSY 03-29 09:33
PROVIDERS: ADMIT Psychiatry & Neurology Neurology; ATTEND Psychiatry & Neurology Psychiatry
DX: F31.9 Bipolar disorder, unspecified (principal); F41.9 Anxiety disorder, unspecified; F90.9 Attention-deficit hyperactivity disorder, unspecified type; F60.3 Borderline personality disorder; F43.10 Post-traumatic stress disorder, unspecified; Z85.820 Personal history of malignant melanoma of skin; Z79.899 Other long term (current) drug therapy; Z88.8 Allergy status to other drugs, medicaments and biological substances; Z91.040 Latex allergy status

== ENCOUNTER → 2024-04-12 | Outpatient (REF) | payer OTHER ==
[~2024-04-12] MED LIST changes: +FLUO40CA PO; +LAMO100T3 PO; +MUPI2OI TOP; +OLAN1TAB16 PO; +PROP40TA62 PO; +TRAZ-252 PO; +VANI1CRE5 TOP
[2024-04-12 17:54] LABS: CHOLESTEROL RISK RATIO 3.25 (<5); HDL CHOLESTEROL 62.7 MG/DL (>40); LDL CHOLESTEROL 127.7 MG/DL (<100); NON-HDL-C 141.3 MG/DL
[2024-04-12 17:57] LABS: THYROID STIMULATING HORMONE 1.145 uIU/ML (0.55-4.78); TOTAL 25(OH) VITAMIN D 22.3 NG/ML (20.0-100.0)
[2024-04-12 18:08] LABS: HEMOGLOBIN A1c 5.2 % (4.0-6.0)
== END ==
LOC: M LAB REF 16:27
PROVIDERS: ATTEND Nurse Practitioner Family
DX: E55.9 Vitamin D deficiency, unspecified (principal); Z68.31 Body mass index [BMI] 31.0-31.9, adult

== ENCOUNTER 2024-06-01 04:05 | Emergency (ER) | payer OTHER ==
[~2024-06-01] VITALS: Ht 180.3 cm; Wt 110.9 kg
[2024-06-01] MEDS: ACETAMINOPHEN 325 MG TAB PO ONE (08:30)
[2024-06-01] MEDS: ONDANSETRON 4MG 2ML VIAL IV ONE (08:30)
[2024-06-01] MEDS: NS (Normal Saline) 0.9% 1,000 ML IV ONE (08:30)
[2024-06-01 08:47] LABS: BASO % 0.4 % (0.0-1.0); EOS # 0.2 10^3/uL (0.0-0.5); EOS % 2.1 % (0.0-3.0); LYMPH # 2.2 10^3/uL (1.5-5.0); LYMPH % 28.8 % (24.0-44.0); MEAN CORPUSCULAR HEMOGLOBIN 27.5 pg (27.0-33.0); MEAN CORPUSCULAR HGB CONC 33.3 g/dl (32.0-36.5); MEAN CORPUSCULAR VOLUME 82.4 fl (80.0-96.0); MONO # 0.6 10^3/uL (0.0-0.8); MONO % 8.5 % (2.0-8.0); NEUTROPHILS # 4.5 10^3/uL (1.5-8.5); NEUTROPHILS % 59.9 % (36.0-66.0); PLATELET COUNT, AUTOMATED 314 10^3/uL (150-450); RED BLOOD COUNT 4.37 10^6/uL (4.00-5.40); WHITE BLOOD COUNT 7.5 10^3/uL (4.0-10.0)
[2024-06-01 09:08] LABS: ALBUMIN 3.8 G/DL (3.2-5.2); BILIRUBIN,DIRECT 0.1 MG/DL (<0.4); BILIRUBIN,TOTAL 0.5 MG/DL (0.3-1.2); TOTAL PROTEIN 7.5 G/DL (5.7-8.2)
[2024-06-01 09:21] LABS: HCG, SERUM QUALITATIVE NEGATIVE (NEGATIVE)
[2024-06-01 09:22] LABS: BLOOD UREA NITROGEN 9 MG/DL (9-23); CALCIUM LEVEL 9.2 MG/DL (8.5-10.1); CARBON DIOXIDE LEVEL 25 MMOL/L (20-31); CHLORIDE LEVEL 103 MMOL/L (98-107); CREATININE FOR GFR 0.63 MG/DL (0.55-1.30); GLOMERULAR FILTRATION RATE > 60.0 (>58); GLUCOSE, FASTING 92 MG/DL (60-100); POTASSIUM SERUM 4.2 MMOL/L (3.5-5.1); SODIUM LEVEL 138 MMOL/L (136-145)
[2024-06-01 09:30] VITALS: BP 95/53
[2024-06-01 09:35] VITALS: TEMP 95.5; O2SAT 97
[2024-06-01] MEDS ORDERED: ONDA-282 PO (09:40)
== END 2024-06-01 09:53 | disposition home or self-care (01) ==
LOC: M ED 04:05
DX: R11.0 Nausea (principal); T51.0X4A Toxic effect of ethanol, undetermined, initial encounter; Z88.8 Allergy status to other drugs, medicaments and biological substances; Z91.040 Latex allergy status; Z79.899 Other long term (current) drug therapy
CPT/HCPCS: 80048; 80076; 83690; 84703; 85025; 96361; 96374; 99284; J2405

== ENCOUNTER → 2024-10-20 | Outpatient (CLI) | payer OTHER ==
[~2024-10-20] MED LIST changes: +LAMI25TA PO; +LAMO100T80 PO; +OLAN1TAB20 PO; -PROZ20CA11; +PROZ20CA12; +TRAZ-186 PO; +VITA200020 PO
== END ==
LOC: M WHC 12:24
PROVIDERS: ATTEND Nurse Practitioner Family
DX: Z12.31 Encounter for screening mammogram for malignant neoplasm of breast (principal)